=== PATIENT | female | born 1960 | race Caucasian/White ===

== ENCOUNTER 2023-12-24 17:40 | Emergency (ER) | payer OTHER, SELFPAY ==
[2023-12-24 17:41] VITALS: BP 172/91
[2023-12-24 18:18] VITALS: BMI 23.5
--- NOTE | 2023-12-24 18:20 | ED.GENMED ---
History of Present Illness
General
Chief Complaint: Abdominal Pain
Source: patient
Exam Limitations: none
Time Seen by Provider: 12/24/23 18:05
Nursing documentation reviewed up to this point in time: agreed with
History of Present Illness
History of Present Illness:
Patient to ED with complaint of LLQ abdominal pain. Pain started this AM. Denies fever/chills. +nausea and vomiting. No prior history of same. Evaluated at and sent to ED for further evaluation. History of diverticulosis as seen on
colonoscopy. On ozempic 3 mos for weight loss. No recent change in dosing.
Past History
Past History
ED Past Medical History: Asthma, HTN, Hypercholesterolemia, NIDDM, Psychiatric (Anxiety) and Other (Irritable bowel syndrome, chronic sinusitis)
ED Past Surgical History: Gynecological (Tubal ligation) and Other (Endoscopic sinus surgery)
Social History
Tobacco: Former smoker (20+ years ago)
Alcohol: None
Personal:
Living: alone
Employment: Employed
Family History
Family History: Other (Noncontributory)
Review of Systems
Review of Systems
Allergies reviewed?: Yes
All Other Systems: ROS reviewed and negative except as documented in HPI and ROS
Constitutional: Reports no symptoms
EENT: Reports no symptoms
Respiratory: Reports no symptoms
Cardiac: Reports no symptoms
ABD/GI: Reports abdominal pain (LLQ)
: Reports no symptoms
Musculoskeletal: Reports no symptoms
Skin: Reports no symptoms
Neurological: Reports no symptoms
Psychiatric: Reports no symptoms
Phy Exam
General Physical Exam
General Presentation: well appearing and no apparent distress
General age: appears stated age
General Skin: warm and dry
General Habitus: normal
General Mental: alert
Pulmonary Exam
Pulmonary Exam: no respiratory distress and chest non tender
Gastrointestinal Exam
Gastrointestinal Exam: normal bowel sounds, soft, no organomegaly, non distended and no cva tenderness
Palpation: left upper quadrant: Mild tenderness, left lower quadrant: Moderate tenderness, right upper quadrant: No tenderness and right lower quadrant: No tenderness
Musculoskeletal Exam
Musculoskeletal Exam: full ROM and neuro vasc intact
Skin Exam
Skin Exam: normal color, warm/dry and no rash
Psychiatric Exam
Psychiatric Exam: normal mood/affect
Course
Orders/Labs/Results
Orders:
Orders
12/24/23
CT Abd/pel W Iv And Oral Contr Urgent
Reason For Exam: LLQ PAIN
12/24/23 18:18
HYDROmorphone [Dilaudid] 0.5 mg IV NOW STA
Ondansetron Injectable [Zofran] 4 mg IV NOW STA
12/24/23 18:19
0.9% Sodium Chloride 1000 ml [Nss] 1,000 ml IV BOLUS
12/24/23 18:24
Iohexol [Omnipaque] See Protocol PO NOW STA
12/24/23 18:45
CMP [Comprehensive Metabolic Panel] Urgent
Complete Blood Count/With Diff Urgent
Lipase Urgent
12/24/23 19:05
Urinalysis Reflex To Culture Urgent
Date Specimen was Collected: 12/24/23
Time Specimen was Collected: 19:03
Urine Microscopic Reflex Cult Urgent
12/24/23 21:53
Amoxicillin 875 mg/Clav 125 mg [Augmentin 875 mg/125 mg] 1 tablet PO NOW STA
12/24/23 21:54
Hydrocodone 5/APAP 325 [[place] 5/325] 1 tablet PO NOW STA
Abnormal Lab Results
12/24/23 12/24/23
18:45 19:05
WBC 15.5 H 10^3/uL
(4.8-10.8)
Abs Immat Gran (auto) 0.1 H 10^3/uL
(0-0.05)
Absolute Neuts (auto) 12.6 H 10^3/uL
(1.4-6.5)
Absolute Monos (auto) 0.9 H 10^3/uL
(0.1-0.6)
Neutrophils % 81.2 H %
(42.2-75.2)
Lymphocytes % 10.5 L %
(20.5-51.1)
Ur Occult Blood Reflex Trace A
(Negative)
Urine RBC 3-6 A /HPF
(0-2)
12/24/23 18:45
12/24/23 18:45
Vital Signs
Initial and Last Documented VS:
Initial Vital Signs
Temp Pulse Resp BP Pulse Ox
98.4 F 98 18 172/91 99
12/24/23 17:41 12/24/23 17:41 12/24/23 17:41 12/24/23 17:41 12/24/23 17:41
Last Documented Vital Signs
Temp Pulse Resp BP Pulse Ox
98.4 F 91 18 130/80 95
12/24/23 17:41 12/24/23 19:00 12/24/23 17:41 12/24/23 21:06 12/24/23 20:40
*Radiology
Radiology exam reviewed: radiology read reviewed
*Pulse Oximetry
Patient hypoxic: no
*Critical Care Note
Total Time (30-74mins, 75-104mins- exclusive of procedures): Not Applicable
ED Attending Note
-
Portions of this chart may have been created with voice recognition software.� Occasional wrong word or��sound alike� substitutions may have occurred due to the inherent limitations of voice recognition software.
Discharge Plan
Departure
Patient Disposition: Home (Routine Discharge)
Date of Disposition: 12/24/23
Time of Disposition: 21:54
Patient with high blood pressure during this ER visit?: No
Condition: Good
Covid-19: Not Applicable
Discharge Problem:
Diverticulitis
Instructions: Diverticulitis (DC)
Prescriptions:
New
amoxicillin-pot clavulanate 875-125 mg tablet
1 tab PO BID Qty: 14 0RF
hydrocodone-acetaminophen 5-325 mg tablet
1 tab PO Q4H PRN (Reason: Pain) Qty: 12 0RF
No Action
lisinopril 10 MG tablet
10 mg PO DAILY
vitamin B complex 1 TAB tablet
1 tab PO DAILY
escitalopram oxalate 5 MG tablet
5 mg PO DAILY
fluticasone propionate 1 SPRAY spray,suspension
1 spray intranasal DAILY
Referrals:
Ryley Parra MD [Family Provider] - Follow up in 2-3 days
Interventions
Interventions:
*Risk Screen - Suicide Last Done: 12/24/23 18:18
*General Assessment Last Done: 12/24/23 18:18
*Neglect/Abuse Screening Last Done: 12/24/23 18:18
ED- Fall Risk Assessment Last Done: 12/24/23 19:30
*ED COVID-19 Vaccine History Last Done: 12/24/23 18:18
*Nursing Disposition Last Done: 12/24/23 22:07
MJ-Tlmpsr-P[facility]te[facility] Assessment Last Done: 12/24/23 19:30
Discharge Date and Time
Discharge Date/Time: 12/24/23 22:08
Print Language: THAI
[2023-12-24] MEDS: OMNIPAQUE 50 ML PO (18:47)
[2023-12-24] MEDS: ZOFRAN 4 MG IV (18:47)
[2023-12-24] MEDS: DILAUDID 0.5 MG IV (18:48)
[2023-12-24] MEDS: NSS 1000 IV (18:49)
[2023-12-24 19:00] VITALS: BP 126/86
[2023-12-24 19:14] LABS: % Basophils 0.5 % (0-2); % Eosinophils 1.8 % (0-6); % Immature Granulocytes 0.5 % (0-0.5); % Lymphocytes 10.5 % (20.5-51.1); % Monocytes 5.5 % (1.7-9.3); % Neutrophils 81.2 % (42.2-75.2); Absolute Basophils 0.1 10^3/uL (0-0.2); Absolute Eosinophils 0.3 10^3/uL (0-0.7); Absolute Immature Granulocytes 0.1 10^3/uL (0-0.05); Absolute Lymphocytes 1.6 10^3/uL (1.2-3.4); Absolute Monocytes 0.9 10^3/uL (0.1-0.6); Absolute Neutrophils 12.6 10^3/uL (1.4-6.5); Hematocrit 39.4 % (37.0-47.0); Hemoglobin 13.5 g/dL (12.0-16.0); Mean Corp Hgb Conc. 34.3 g/dL (33.0-37.0); Mean Corpuscular Hgb 30.5 pg (27.0-31.0); Mean Corpuscular Volume 89.1 fL (81.0-99.0); Mean Platelet Volume 10.1 fL (7.4-10.4); Nucleated Red Blood Cells % 0 %; Platelet Count 265 10^3/uL (130-400); Red Blood Cell Count 4.42 10^6/uL (4.20-5.40); Red Cell Dist. Width 13.4 % (11.5-14.5); White Blood Cell Count 15.5 10^3/uL (4.8-10.8)
[2023-12-24 19:14] LABS: Urine Albumin Negative (Neg - Trace); Urine Bilirubin Negative (Negative); Urine Character Clear (Clear); Urine Color Yellow; Urine Glucose Negative (Negative); Urine Ketone Negative (Negative); Urine Leukocyte Negative (Negative); Urine Nitrite Negative (Negative); Urine Occult Blood Trace (Negative); Urine Urobilinogen Negative (Neg - 1+)
[2023-12-24 19:33] LABS: ALT (SGPT) 24 U/L (0-35); AST (SGOT) 25 U/L (14-36); Albumin 4.7 g/dl (3.5-5.0); Alkaline Phosphatase 83 U/L (38-126); Blood Urea Nitrogen 14 mg/dl (7-17); Carbon Dioxide 26 mmol/L (22-30); Chloride 103 mmol/L (98-107); Estimated Creatinine Clearance 80 ml/min; Glucose 97 mg/dl (70-99); Potassium 4.1 mmol/L (3.5-5.1); Sodium 139 mmol/L (135-145); Total Bilirubin 0.5 mg/dl (0.2-1.3); Total Protein 6.9 g/dl (6.3-8.2); eGFR > 60.00
[2023-12-24 19:43] LABS: Lipase 47 U/L (23-300)
[2023-12-24 21:06] VITALS: BP 130/80
[2023-12-24] MEDS: NORCO 5/325 1 TABLET PO (22:01)
[2023-12-24] MEDS: AUGMENTIN 875 MG/125 MG 1 TABLET PO (22:01)
== END 2023-12-24 22:08 | disposition home or self-care (01) ==
LOC: EMR 17:40
PROVIDERS: Nurse Practitioner; EMERGENCY PHYSICIAN Emergency Medicine; FAMILY PHYSICIAN Orthopaedic Surgery
DX: K57.92 Diverticulitis of intestine, part unspecified, without perforation or abscess without bleeding (principal); I10 Essential (primary) hypertension; E11.9 Type 2 diabetes mellitus without complications; E78.00 Pure hypercholesterolemia, unspecified; J45.909 Unspecified asthma, uncomplicated; F41.9 Anxiety disorder, unspecified; K58.9 Irritable bowel syndrome, unspecified; J32.9 Chronic sinusitis, unspecified; Z87.891 Personal history of nicotine dependence; Z88.1 Allergy status to other antibiotic agents; Z91.018 Allergy to other foods; Z91.048 Other nonmedicinal substance allergy status
CPT/HCPCS: 99285; 96375; 96361; 96374; 74177; 80053; 81003; 81015; 83690; 85025; Q9967

== ENCOUNTER → 2024-12-17 15:13 | Outpatient (REF) | payer OTHER, SELFPAY | LOC: RAD 15:13 | PROVIDERS: ATTENDING PHYSICIAN Student in an Organized Health Care Education/Training Program | DX: K52.9 Noninfective gastroenteritis and colitis, unspecified (principal); K62.5 Hemorrhage of anus and rectum | CPT/HCPCS: 74177; Q9967 ==

== ENCOUNTER 2024-12-18 14:04 | Inpatient (IN) | payer OTHER, SELFPAY ==
[2024-12-18 09:55] VITALS: BP 117/77
--- NOTE | 2024-12-18 10:21 | ED.GENMED ---
History of Present Illness
General
Chief Complaint: Abnormal Lab Value
Time Seen by Provider: 12/18/24 10:04
History of Present Illness
History of Present Illness:
64-year-old female presents to the emergency department for evaluation of recurrent colitis as well as a diagnosed PE on CT scan from yesterday. In short the patient was admitted to [facility] in [place] 11/03-11/09 for vomiting and
diarrhea, she was diagnosed with acute colitis initially treated with IV ciprofloxacin and metronidazole before being transition to steroids. She apparently underwent a colonoscopy however does not have detailed knowledge of the findings of the
scope. She does note that she was reportedly told she had a sigmoid ulcer at that time. She states she did improve symptomatically however over the past several days has had increased diarrhea and is blood-tinged. Denies any significant abdominal
pain at this time but does have pain with bowel movements. Denies any fevers or chills. Had an outpatient CT of the abdomen pelvis yesterday that showed recurrent colitis but also incidentally noted right lower lobe pulmonary embolic disease.
Referred to the emergency department by her primary care physician. She does note that her hemoglobin murray while hospitalized in [place] was approximately mid eights however increased to mid nines on outpatient labs recently
Past History
Past History
ED Past Medical History: Asthma, HTN, Hypercholesterolemia, NIDDM, Psychiatric (Anxiety) and Other (Irritable bowel syndrome, chronic sinusitis)
ED Past Surgical History: Gynecological (Tubal ligation) and Other (Endoscopic sinus surgery)
Social History
Tobacco: Former smoker (20+ years ago)
Alcohol: None
Personal:
Living: alone
Employment: Employed
Family History
Family History: Other (Noncontributory)
Review of Systems
Review of Systems
Allergies reviewed?: Yes
All Other Systems: ROS reviewed and negative except as documented in HPI and ROS
Phy Exam
Physical Exam
Physical Exam:
GEN: Well appearing, NAD, WDWN
HEENT: Oral mucosa moist, no scleral icterus
Cardiac: Tachycardic, regular
Lung: No respiratory distress, no tachypnea, lungs clear to auscultation bilateral
Abdomen: Soft, nontender
MSK: No gross deformity or injuries
Skin: Good color, no pallor or jaundice, no rashes
Neuro: AO x3, moves all extremities freely
Psych: Calm, cooperative
Course
Orders/Labs/Results
Orders:
Orders
12/18/24 09:58
Electrocardiogram (*1) Urgent
Reason for Study: Other
Other Reason for Exam: PE
EKG- Treatment ONCE
12/18/24 10:20
CT Chest PE Study Urgent
Comment:
Reason For Exam: RLL PE on abd CT
12/18/24 10:21
C DIFF [C difficile Antigen & Toxins] Urgent
BHAVNA Source: Feces/Stool
Specimen Description:
Stool Culture Urgent
BHAVNA Source: Feces/Stool
Specimen Description:
12/18/24 10:36
Type+Screen Urgent
Complete Blood Count/With Diff Urgent
Comprehensive Metabolic Panel Urgent
Lactic Acid Q4H
Comment: CANCEL 2nd LACTIC ACID IF 1st LACTIC ACID IS LESS THAN 2
PTT Urgent
Prothrombin Time Urgent
12/18/24 13:[address] Non Medication Order As Directed
Physician Order: PTT 6 hours after initial start of Heparin infusion
Above order entered?: Yes
12/18/24 13:04
Lactated Ringers [Lr] 1,000 ml IV BOLUS
12/18/24 13:15
Heparin 10320 Units/250 ml 25,000 units in 250 ml IV PER PROTOCOL
Weight to be used for heparin protocol in kilograms (kg):: 55
Protocol:: DVT/PE
PTT Goal Range to be used:: PTT 73 to 111 seconds
Order type:: Initial
INITIAL Infusion Dose (UNITS/KG/hr) & then follow protocol:: 18 units/kg/hr
Infusion Dose in UNITS/hr & then follow protocol (UNITS/hr):: 1,000
INFUSION RATE in mL/hr & then follow protocol (mL/hr):: 10
For DVT/PE algorithm, re-bolus for low PTT?: No
PTT less than or equal to 64 seconds:: No Re-bolus. Increase by 200 units/hr (+ 2mL/hr)
PTT 64.1 to 72.9 seconds:: No Re-bolus. Increase by 100 units/hr (+ 1mL/hr)
PTT 73 to 111 seconds:: Target Range. No change in rate.
PTT 111.1 to 130.9 seconds:: Decrease rate by 100 units/hr (- 1 mL/hr)
PTT 131 to 199.9 seconds:: HOLD for 1 hr. Then decrease by 200 units/hr (- 2mL/hr)
PTT greater than or equal to 200 seconds:: HOLD for 2 hrs & Notify Provider. Then decrease by 200 units/hr
(- 2mL/hr)
Lab follow-up:: Each change, PTT q6h until 2 consecutive are therapeutic. Then
PTT daily.
12/18/24 13:49
Admit/Transfer Patient As Directed
Co-Sign Provider:
Level of Care: Inpatient admission
Assign to:: Telemetry
Physician / Group: [email or web address]
Diagnosis: colitis
Reason for Telemetry: Arrhythmia
Date to Stop Telemetry: 12/21/24
Time to Stop Telemetry: 11:00
Reason for Hospitalization: colitis
Expected length of stay greater than two midnights?: Yes
ELOS- Estimated Length of Stay in days: 2
I certify the patient meets the requirements for IP care: Yes
12/18/24 13:50
Code Status As Directed
Resuscitation Status: Full Code
PRN Pain Medication Management As Directed
May give lesser potent ordered pain med per pt: Yes
preference::
Protocol:: Medication orders for pain may be administered in a
manner that supports deferring to patient preference
when the pt is:
- Requesting an ordered lesser potent pain medication.
Least to most potent pain medications are defined
as: acetaminophen < NSAID < tramadol < opioids
(morphine, oxycodone, hydromorphone).
- Requesting a lesser dose of the same medication IF
ORDERED.
- Requesting a less intrusive route of administration
if both routes are prescribed by the provider (PO <
IV).
12/21/24 11:00
DC Protocol for Telemetry ONCE
Abnormal Lab Results
12/18/24
10:36
RBC 3.29 L 10^6/uL
(4.20-5.40)
Hgb 9.5 L g/dL
(12.0-16.0)
Hct 30.5 L %
(37.0-47.0)
MCHC 31.1 L g/dL
(33.0-37.0)
RDW 16.5 H %
(11.5-14.5)
Abs Immat Gran (auto) 0.1 H 10^3/uL
(0-0.05)
Absolute Monos (auto) 1.1 H 10^3/uL
(0.1-0.6)
Immature Gran % 0.9 H %
(0-0.5)
Monocytes % 10.9 H %
(1.7-9.3)
APTT 20.8 L Sec
(23.4-35.0)
Potassium 3.4 L mmol/L
(3.5-5.1)
AST 12 L U/L
(14-36)
Total Protein 4.4 L g/dl
(6.3-8.2)
Albumin 2.5 L g/dl
(3.5-5.0)
12/18/24 10:36
12/18/24 10:36
Vital Signs
Initial and Last Documented VS:
Initial Vital Signs
Temp Pulse Resp BP Pulse Ox
98.3 F 121 18 117/77 99
12/18/24 09:55 12/18/24 09:55 12/18/24 09:55 12/18/24 09:55 12/18/24 09:55
Last Documented Vital Signs
Temp Pulse Resp BP Pulse Ox
98.3 F 121 18 117/77 99
12/18/24 09:55 12/18/24 09:55 12/18/24 09:55 12/18/24 09:55 12/18/24 09:55
MDM/Problems Addressed
MDM/Problems Addressed:
64-year-old female presents with worsening colitis symptoms however also noted to have outpatient PE on CT scan. Given that she has had rectal bleeding secondary to colitis we will start her on heparin and avoid the bolus for the time being and
monitor for bleeding complications. Management of this was discussed with critical care cage operator as well as hospitalist.
*Critical Care Note
Total Time (30-74mins, 75-104mins- exclusive of procedures): Not Applicable
ED Attending Note
-
Portions of this chart may have been created with voice recognition software.� Occasional wrong word or��sound alike� substitutions may have occurred due to the inherent limitations of voice recognition software.
Discharge Plan
Departure
Patient Disposition: Admit
Date of Disposition: 12/18/24
Time of Disposition: 13:01
Admit to: Med/Surg
Presentation/result/management discussed w/ accepting MD/DO: Hospitalist
Discharge Problem:
Acute pulmonary embolism, Acute colitis
Interventions
Interventions:
*Risk Screen - Suicide Last Done: 12/18/24 09:55
*General Assessment Last Done: 12/18/24 09:55
*Neglect/Abuse Screening Last Done: 12/18/24 09:55
*ED- Fall Risk Assessment Last Done: 12/18/24 10:30
*ED COVID-19 Vaccine History Last Done: 12/18/24 10:30
[2024-12-18 10:28] VITALS: BMI 22.2
[2024-12-18 10:47] LABS: % Basophils 0.2 % (0-2); % Eosinophils 0.9 % (0-6); % Immature Granulocytes 0.9 % (0-0.5); % Lymphocytes 31.5 % (20.5-51.1); % Monocytes 10.9 % (1.7-9.3); % Neutrophils 55.6 % (42.2-75.2); Absolute Eosinophils 0.1 10^3/uL (0-0.7); Absolute Immature Granulocytes 0.1 10^3/uL (0-0.05); Absolute Lymphocytes 3.3 10^3/uL (1.2-3.4); Absolute Monocytes 1.1 10^3/uL (0.1-0.6); Absolute Neutrophils 5.8 10^3/uL (1.4-6.5); Hematocrit 30.5 % (37.0-47.0); Hemoglobin 9.5 g/dL (12.0-16.0); Mean Corp Hgb Conc. 31.1 g/dL (33.0-37.0); Mean Corpuscular Hgb 28.9 pg (27.0-31.0); Mean Corpuscular Volume 92.7 fL (81.0-99.0); Mean Platelet Volume 8.6 fL (7.4-10.4); Nucleated Red Blood Cells % 0 %; Platelet Count 274 10^3/uL (130-400); Red Blood Cell Count 3.29 10^6/uL (4.20-5.40); Red Cell Dist. Width 16.5 % (11.5-14.5); White Blood Cell Count 10.3 10^3/uL (4.8-10.8)
[2024-12-18 10:57] LABS: INR 0.93; PT 12.8 Sec (11.4-14.6)
[2024-12-18 11:13] LABS: ALT (SGPT) 17 U/L (0-35); AST (SGOT) 12 U/L (14-36); Albumin 2.5 g/dl (3.5-5.0); Alkaline Phosphatase 48 U/L (38-126); Blood Urea Nitrogen 17 mg/dl (7-17); Calcium 8.5 mg/dl (8.4-10.2); Carbon Dioxide 29 mmol/L (22-30); Chloride 104 mmol/L (98-107); Estimated Creatinine Clearance 76 ml/min; Glucose 98 mg/dl (70-99); Potassium 3.4 mmol/L (3.5-5.1); Sodium 135 mmol/L (135-145); Total Bilirubin 0.3 mg/dl (0.2-1.3); Total Protein 4.4 g/dl (6.3-8.2); eGFR > 60.00
[2024-12-18 11:24] LABS: APTT 20.8 Sec (23.4-35.0)
[2024-12-18 11:36] LABS: Lactic Acid 1.4 mmol/L (0.7-2.0)
--- NOTE | 2024-12-18 13:52 | HPS.HSE ---
Family Physician
-
Family Physician: NOT KNOW UNKNOWN - PT DOES
Chief Complaint
-
diarrhea
History of Present Illness
64-year-old female past medical history of hypertension, chronic sinusitis status post surgery for nasal polyps, abscess behind the left eye status post surgery, possible diverticulitis, discogenic degenerative disc disease on imaging, presenting
for persistent diarrhea.
Patient was admitted to [facility] in [place] from 11/03 to 11/09 for initially vomiting which resolved and bloody diarrhea and she was diagnosed with acute colitis initially treated with IV ciprofloxacin and metronidazole. She underwent
a colonoscopy during hospitalization which showed severe colonic inflammation and sigmoid ulcer. She has continued to have persistent diarrhea up to 10 times a day but the bleeding is significantly improved with only changes of blood. No fevers or
chills. Does have vague abdominal discomfort. She has been eating. She was started on prednisone a week ago by her GI doctor was nothing else worked.
Had outpatient CT scan of the abdomen pelvis yesterday that showed recurrent colitis but also incidentally showed right lower lobe pulmonary embolic disease. She was referred to the emergency room by her primary care physician.
She was found to be anemic while in [place] around 8.5 however it increased to 9.5 on outpatient labs recently. She did have an episode of abdominal pain thought to be secondary to diverticulitis 2 months ago
She denies any shortness of breath or chest pain or dizziness apart from initial syncopal episode from hypotension during hospitalization in [place].
He recently had a long drive back from [place] when she was sitting for 5 hours. She did have some swelling in her left leg which is resolved.
She has history of GI issues in her mother and brother with no specific diagnosis.
Medical History
Past Medical History
Past Medical History: Reports Other (hypertension, chronic sinusitis status post surgery for nasal polyps, abscess behind the left eye status post surgery, possible diverticulitis, discogenic degenerative disc disease on imaging)
Past Surgical History: Reports Other (Gynecological (Tubal ligation) and Other (Endoscopic sinus surgery))
Social History
Tobacco: Non-smoker
Alcohol: None
Drug: None
Family History
Family History: Not pertinent
Allergies / Home Medications
Allergies reflects when Allergies were last updated in [facility].
Home Medications with original date entered in [facility]
Allergy/Medication List:
Allergies
Allergy/AdvReac Type Severity Reaction Status Date / Time
azithromycin (From Zithromax Allergy Unknown Verified 12/18/24 09:55
Z-Chu)
bananas Allergy itchy mouth Uncoded 03/04/20 14:22
pollen Allergy sneezing Uncoded 03/04/20 14:22
and watery
eyes
Home Medications
escitalopram oxalate 5 mg tablet 5 mg PO DAILYPRN PRN anxiety 06/10/16
lisinopril 10 mg tablet 10 mg PO DAILYPRN PRN high blood pressure 06/10/16
Lactobac no.2-Bifidobac no.1-S. thermo 112.5 billion cell capsule (Visbiome) 1 cap PO BID 12/18/24
dicyclomine 10 mg capsule 20 mg PO TID 12/18/24
ferrous sulfate 325 mg (65 mg iron) tablet 325 mg PO MOWEFR 12/18/24
loperamide 2 mg tablet 2 mg PO BIDPRN PRN diarrhea 12/18/24
prednisone 5 mg tablet 5 mg PO DIRECTED 12/18/24
Review of Systems
-
History Source: Patient
A 12 point ROS was completed and negative except as noted: Yes
Constitutional: Reports No Symptoms
EENT: Reports No Symptoms
Respiratory: Reports No Symptoms
Cardiac: Reports No Symptoms
Abdomen/GI: Reports See HPI
: Reports No Symptoms
Musculoskeletal: Reports No Symptoms
Skin: Reports No Symptoms
Neurological: Reports No Symptoms
Endocrine: Reports No Symptoms
Hematologic/Lymphatic: Reports No Symptoms
Psych: Reports No Symptoms
Physical Exam
Vital Signs
Vital Signs
Temp Pulse Resp BP Pulse Ox
98.3 F 121 18 117/77 99
12/18/24 09:55 12/18/24 09:55 12/18/24 09:55 12/18/24 09:55 12/18/24 09:55
Physical Exam
General: Well Developed, Well Nourished and No Apparent Distress
HEENT: NormoCephalic, Moist mucous membranes and Atraumatic
Respiratory: Clear
Cardiac: S1/S2 and Regular Rhythm; No Murmur or Rub
GI: Soft, Non Tender, Non Distended and Normal Bowel Sounds; No Organomegaly
Rectal: Deferred by Provider
Musculoskeletal: No Clubbing, No Cyanosis and No Edema
Skin: No Rash
Neuro: Nonfocal/grossly intact
Laboratory Results
-
12/18/24 10:36
12/18/24 10:36
Laboratory Results
PT 12.8 Sec (11.4-14.6) 12/18/24 10:36
INR 0.93 12/18/24 10:36
APTT 20.8 Sec (23.4-35.0) L 12/18/24 10:36
Lactic Acid Cancelled 12/18/24 14:30
Total Bilirubin 0.3 mg/dl (0.2-1.3) 12/18/24 10:36
AST 12 U/L (14-36) L 12/18/24 10:36
ALT 17 U/L (0-35) 12/18/24 10:36
Alkaline Phosphatase 48 U/L (38-126) 12/18/24 10:36
Data Reviewed
-
Lab Data: Labs Reviewed by me
Old Records: Reviewed
Impression/Plan
-
IMPRESSION:
PLAN:
# Persistent Colitis of transverse/descending colon unclear if infectious versus ischemic versus underlying IBD versus malignancy
# Sigmoid ulcer
# Acute gastritis
- CT abdomen pelvis shows moderate acute recurrent colitis in the transverse and descending colon possibly acute ischemic colitis versus acute inflammatory bowel disease versus acute infectious colitis
- Large amount of fecal material in the proximal colon
- 3.8 cm focal regional wall thickening in the gastric cardia and fundus possibly gastritis
-IV fluids
-Stool studies pending
-Unclear if she has underlying IBD versus malignancy
-Protonix 40 twice daily
-Continue dicyclomine
-Hold prednisone
-Clear liquid diet
-Will need to obtain records from [facility]
-GI consulted
# Hypokalemia secondary to GI losses
- Replete potassium
# Incidental pulmonary embolism likely exacerbated by recent long drive/concerning for underlying inflammatory GI process
-EKG shows sinus tachycardia heart rate of 111
-CT PE today shows small volume bilateral lower lobe pulmonary embolism without right heart strain
-Heparin drip
Normocytic anemia
- Hemoglobin 9.5
- Continue ferrous sulfate
Hepatic steatosis on imaging
Essential hypertension
- Continue lisinopril
Chronic sinusitis/nasal polyp status post surgery
Discogenic degenerative disc disease on imaging
Anxiety/depression
-Continue Lexapro
Full code
DVT prophylaxis�heparin drip
N.p.o.
[2024-12-18] MEDS: LR 1000 IV (14:19)
[2024-12-18] MEDS: HEPARIN 25000 UNITS/250 ML IV (14:19)
--- NOTE | 2024-12-18 15:01 | CON.GI ---
Addendum entered and electronically signed by Kevan Awad MD 12/18/24 19:59:
pls note other findings on CT:
- fatty liver, gb polyps (will need outpatient follow up)
- jejunal wall thickening (she may have Crohn's which could explain sb thickening)
on d/w pulm they recommend waiting 6 weeks to 3 mo for propofol
once echo also done can re-eval timeline
may need ugis/sbft for eval of stomach lesion in interim
Addendum entered and electronically signed by Kevan Awad MD 12/18/24 16:46:
The patient was seen and examined by me independently in collaboration with the nurse practitioner.
Past medical history/social history/medications/allergies/family history reviewed.
Lab data and imaging data reviewed.
64 yo F pmh as below with recent hospitalization in [place]. Symptoms initially started early November after having a nipple holding with nausea and vomiting. She underwent a CT in the ER at that point and was discharged. Then she developed bloody
diarrhea up to 27 bowel movements a day and was hypotensive with blood pressure of 70/48 which led to her going back to the emergency room and ultimately being admitted from December 06 to December 10. Per patient, she underwent 2 CT scans, no stool samples
were done, colonoscopy. Tara have reached out to their office and per their oral read of report to Tara ' sigmoid diverticulosis encountered. Active bleeding in the transverse colon. Colonoscopy aborted in transverse secondary to colitis. Random
biopsy taken in transverse colon and ulceration in sigmoid colon that was 2 cm. Sparing in rectum and distal sigmoid colon. Path: Transverse colon: acute granulation tissue with fibropurulent exudate consistent with ulcer. Sigmoid ulcer: acute
granulation tissue with fibropurulent exudate consistent with ulcer. Negative for microscopic colitis, negative for dysplasia or malignancy.' She was discharged and then followed up with GI outpatient and was ultimately started on steroids. They
started her on 60 mg a day and she tapered every 3 days and she is currently on 15 mg. Her stools did decrease in terms of the frequency now down to 8 bowel movements a day. She has not seen blood in her stool since December 02. She noted her stools
were more watery since she decreased to 15 mg but unclear if it was due to that or her diet. She has some pain before a bowel movement, some urgency, incontinence, nocturnal bowel movements. She has lost 15 pounds. Unclear family history her mom
has colitis but not on any chronic medications and her brother has GI issues unclear what those are. No known autoimmune conditions.
Patient was sent in by her outpatient primary care doctor as she underwent a CT scan which showed a pulmonary embolus. She was referred back to the emergency room.
Pulmonology has seen her and she is currently on a heparin drip. Likely VTE was multifactorial on d/w pulm due to hospitalization, colitis, car ride.
Reviewing her pathology, she does not clearly have IBD although my concern with the recent thromboembolus this could represent early IBD (would be more Crohn's colitis with rectal and distal sigmoid sparing) as well as her ongoing symptoms for 6
weeks and perhaps that is why they did not see chronicity on the biopsies. She does seem to have some response to steroids. I would like to do a flexible sigmoidoscopy but will discuss with both pulmonology and anesthesia tomorrow; clear liquid
diet for now with potential scope. I suspect the best option would be to do this unsedated with repeat biopsies to see if there is chronicity at this point. In the interim, I do recommend stool studies which have been ordered for infection as well
as a fecal calprotectin. In the interim, I will continue her prednisone at 20 mg.
She was incidentally found to have thickening of her stomach and will eventually need EGD timing TBD.
Original Note:
Consultation
-
Date/Time Consultation Requested: 12/18/24 1400
Date/Time Consultation Performed: 12/18/24 1430
Requesting Provider: Dr. Giron
Performing Provider: Dr. Awad/ALLIE Baum
Reason for Consultation: colitis
Medical History
Chief Complaint / HPI
Chief Complaint: diarrhea, abnormal imaging
History of Present Illness:
64-year-old female past medical history of chronic sinusitis status post nasal surgery, abscess behind left eye status post surgery, degenerative disc disease, colon polyps with recent admission to [facility] in [place] for at first
nausea and vomiting after eating meatball hoagie from [facility] with subsequent hospitalization on 11/03/2024 for bloody diarrhea and 'colitis'. Prior to arrival she syncopized and her BP was 70/40 on arrival in ER. She was started on IV abx and had
colonoscopy performed by Dr. Moya on 11/07/24. I was able to contact his office for preliminary report ([phone]) (official colonoscopy report and path to be faxed). At that time the patient was having up to 27 bloody diarrheal bowel movements.
Was discharged on Cipro and Flagyl for 10 days. She was able to eat and drink only having abdominal cramping prior to bowel movement. She was also having fecal incontinence. She lost 15 pounds from 11/03/2024. She has no stool studies performed at
that time. She did follow-up with nurse practitioner in his office because of persistence of symptoms. The blood had stopped by 12/02/2024. Prednisone was initiated on 12/03/2024 by his office with taper.. This was 60 mg x 3 days, 40 mg x 3 days,
20 mg x 3 days, 15 mg x 7 days, 10 mg x 7 days and 5 mg x 7 days. currently the patient is still on 15 mg. the patient tells me that the colonoscopy was incomplete secondary to 'inflammation'. Telephone interpretation of report by his nursing
staff states ' sigmoid diverticulosis encountered. Active bleeding in the transverse colon. Colonoscopy aborted in transverse secondary to colitis. Random biopsy taken in transverse colon and ulceration in sigmoid colon that was 2 cm. Sparing in
rectum and distal sigmoid colon. Path: Transverse colon: acute granulation tissue with fibropurulent exudate consistent with ulcer. Sigmoid ulcer: acute granulation tissue with fibropurulent exudate consistent with ulcer. Negative for microscopic
colitis, negative for dysplasia or malignancy.' The patient states that since she was started on prednisone her bowel movements went from 27 a day down to approximately 11 a day. They went from watery to a 'mashed potato consistency'. she states
today they are back to a watery consistency. Because of her persistent symptoms she had outpatient CT scan of the abdomen and pelvis that showed recurrent colitis however also showed right lower lobe PE. She was sent to the emergency room for
further evaluation. We are asked to evaluate for the same. The patient does state that while she was in [place] she did have bilateral lower extremity edema before her drive. She is did state that it worsened during her drive home. She states
that she has had fatigue for the past couple weeks. She denies any fevers, chills, current nausea or vomiting. She denies any melena. She denies any current rectal bleeding. She denies any dysphagia or odynophagia. No early satiety. As stated
above she has lost 15 pounds since this started. She has no known family history of inflammatory bowel disease. She states her mother had an isolated episode of colitis. She had a paternal aunt with colon cancer. No other family history of
gastrointestinal malignancy.
Past Medical History
Past Medical History: HTN and Other ( Chronic sinusitis, left eye abscess, degenerative disc disease, colon polyps, colitis)
Past Surgical History: Gynecological (tubal ligation) and Other (sinus surgery )
Social History
Tobacco: Non-Smoker
Alcohol: None
Drug: None
Personal:
Living: With Family
Family History
Family History: Other (Paternal aunt colon ca, No fam hx IBD)
Allergies / Home Medications
Allergy/AdvReac Type Severity Reaction Status Date / Time
azithromycin (From Zithromax Allergy Unknown Verified 12/18/24 09:55
Z-Chu)
bananas Allergy itchy mouth Uncoded 03/04/20 14:22
pollen Allergy sneezing Uncoded 03/04/20 14:22
and watery
eyes
�Medication �Instructions �Recorded
escitalopram oxalate 5 mg tablet 5 mg PO DAILYPRN PRN anxiety 06/10/16
lisinopril 10 mg tablet 10 mg PO DAILYPRN PRN high blood 06/10/16
pressure
Lactobac no.2-Bifidobac no.1-S. 1 cap PO BID 12/18/24
thermo 112.5 billion cell capsule
(Visbiome)
dicyclomine 10 mg capsule 20 mg PO TID 12/18/24
ferrous sulfate 325 mg (65 mg 325 mg PO MOWEFR 12/18/24
iron) tablet
loperamide 2 mg tablet 2 mg PO BIDPRN PRN diarrhea 12/18/24
prednisone 5 mg tablet 5 mg PO DIRECTED 12/18/24
Review of Systems
-
All other systems: A 12 pt ROS was Negative except as stated above in HPI
Vital Signs
Temp Pulse Resp BP Pulse Ox
98.3 F 121 18 117/77 99
12/18/24 09:55 12/18/24 09:55 12/18/24 09:55 12/18/24 09:55 12/18/24 09:55
Physical Exam
Exam
General: No Apparent Distress
HEENT: Anicteric
Respiratory: Clear
Cardiac: Regular Rhythm
GI: Soft, Non Tender, Non Distended and Normal Bowel Sounds
Skin: Warm and Dry
Neuro: AO x 3
Psych: Calm
Results
WBC 10.3 10^3/uL (4.8-10.8) 12/18/24 10:36
Hgb 9.5 g/dL (12.0-16.0) L 12/18/24 10:36
Hct 30.5 % (37.0-47.0) L 12/18/24 10:36
MCV 92.7 fL (81.0-99.0) 12/18/24 10:36
Plt Count 274 10^3/uL (130-400) 12/18/24 10:36
Absolute Neuts (auto) 5.8 10^3/uL (1.4-6.5) 12/18/24 10:36
PT 12.8 Sec (11.4-14.6) 12/18/24 10:36
INR 0.93 12/18/24 10:36
APTT 20.8 Sec (23.4-35.0) L 12/18/24 10:36
Sodium 135 mmol/L (135-145) 12/18/24 10:36
Potassium 3.4 mmol/L (3.5-5.1) L 12/18/24 10:36
Chloride 104 mmol/L (98-107) 12/18/24 10:36
Carbon Dioxide 29 mmol/L (22-30) 12/18/24 10:36
BUN 17 mg/dl (7-17) 12/18/24 10:36
Creatinine 0.6 mg/dL (0.6-1.0) 12/18/24 10:36
Calcium 8.5 mg/dl (8.4-10.2) 12/18/24 10:36
Total Bilirubin 0.3 mg/dl (0.2-1.3) 12/18/24 10:36
AST 12 U/L (14-36) L 12/18/24 10:36
ALT 17 U/L (0-35) 12/18/24 10:36
Alkaline Phosphatase 48 U/L (38-126) 12/18/24 10:36
Diagnostic Image Results:
CT Abd/Pelvis with oral and IV contrast 12/17/24:
1. ACUTE PULMONARY ARTERIAL EMBOLIC DISEASE in the right lower lobe.
2. Moderate acute recurrent colitis in the transverse and descending colon. Diagnostic possibilities are (1) ACUTE ISCHEMIC COLITIS, (2) acute inflammatory bowel disease, or (3) an acute infectious colitis.
3. Large amount of fecal material in the proximal colon.
4. Mild to moderate diverticulosis in the sigmoid colon.
5. Mild hepatomegaly and mild diffuse hepatic steatosis.
6. 3.8 cm focal region of wall thickening in the gastric cardia and fundus. Diagnostic possibilities are (1) gastritis or (2) less likely gastric adenocarcinoma.
7. 3 mm nonobstructing right intrarenal calculus.
8. Severe discogenic degenerative disease at L4/L5 and L5/S1.
Prior GI Procedures:
EGD: Never
Colonoscopy: Dr. Moya ([facility]) 11/07/24 Telephone interpretation of report by his nursing staff states ' sigmoid diverticulosis encountered. Active bleeding in the transverse colon. Colonoscopy aborted in transverse secondary to
colitis. Random biopsy taken in transverse colon and ulceration in sigmoid colon that was 2 cm. Sparing in rectum and distal sigmoid colon. Path: Transverse colon: acute granulation tissue with fibropurulent exudate consistent with ulcer. Sigmoid
ulcer: acute granulation tissue with fibropurulent exudate consistent with ulcer. Negative for microscopic colitis, negative for dysplasia or malignancy. (Official report being faxed).
COLO 09/19/2018 (Dr. Harding) - Preparation of the colon was fair.
- The examined portion of the ileum was normal.
- Stool in the descending colon, in the transverse
colon, in the ascending colon and in the cecum.
- One 4 mm polyp at 30 cm proximal to the anus, removed
with a jumbo cold forceps. Resected and retrieved.
- One 4 mm polyp in the cecum, removed with a jumbo cold
forceps. Resected and retrieved.
- One 4 mm polyp in the proximal ascending colon,
removed with a jumbo cold forceps. Resected and
retrieved.
- Diverticulosis in the descending colon, in the
transverse colon and in the ascending colon.
- Moderate diverticulosis in the sigmoid colon. There
was evidence of diverticular spasm.
Assessment / Plan
-
64 year old female past medical history of chronic sinusitis status post nasal surgery, abscess behind left eye status post surgery, degenerative disc disease, chronic constipation, colon polyps with recent admission to [facility] in
[place] for at first nausea and vomiting after eating meatball hoagie from [facility] with subsequent hospitalization on 11/03/2024 for bloody diarrhea and 'colitis'. Prior to arrival she syncopized and her BP was 70/40 on arrival in ER. She was started on
IV abx and had colonoscopy performed by Dr. Moya on 11/07/24. I was able to contact his office for preliminary report ([phone]) (official colonoscopy report and path to be faxed). At that time the patient was having up to 27 bloody diarrheal
bowel movements. Was discharged on Cipro and Flagyl for 10 days. She was able to eat and drink only having abdominal cramping prior to bowel movement. She was also having fecal incontinence. She lost 15 pounds from 11/03/2024. She has no stool
studies performed at that time. She did follow-up with nurse practitioner in his office because of persistence of symptoms. The blood had stopped by 12/02/2024. Prednisone was initiated on 12/03/2024 by his office with taper.. This was 60 mg x 3
days, 40 mg x 3 days, 20 mg x 3 days, 15 mg x 7 days, 10 mg x 7 days and 5 mg x 7 days. currently the patient is still on 15 mg. the patient tells me that the colonoscopy was incomplete secondary to 'inflammation'. Telephone interpretation of
report by his nursing staff states ' sigmoid diverticulosis encountered. Active bleeding in the transverse colon. Colonoscopy aborted in transverse secondary to colitis. Random biopsy taken in transverse colon and ulceration in sigmoid colon that
was 2 cm. Sparing in rectum and distal sigmoid colon. Path: Transverse colon: acute granulation tissue with fibropurulent exudate consistent with ulcer. Sigmoid ulcer: acute granulation tissue with fibropurulent exudate consistent with ulcer.
Negative for microscopic colitis, negative for dysplasia or malignancy.' The patient states that since she was started on prednisone her bowel movements went from 27 a day down to approximately 11 a day. They went from watery to a 'mashed potato
consistency'. she states today they are back to a watery consistency. Because of her persistent symptoms she had outpatient CT scan of the abdomen and pelvis that showed recurrent colitis however also showed right lower lobe PE. She was sent to
the emergency room for further evaluation. We are asked to evaluate for the same.
Impression:
Colitis-> incomplete colonoscopy to transverse colon
--> persistent diarrhea
Sigmoid ulcer on recent procedure in [place]
3.8 cm focal region of wall thickening in the gastric cardia and fundus on CT imaging
--> new finding, no upper complaints.
Anemia
--> new issue. Improved Hgb since [place] admission. Prior Hgb was 8.5 in [place]. Now 9.5.
Pulmonary Embolism
--On Heparin gtt
Hx chronic constipation
--> prior to acute issues
Plan:
-Check stool studies (C Diff, WBC, O&P, Vibrio, Culture)
-Check ESR, CRP, calpro
-Await records from Dr. Moya and [facility]
-Steroids on hold
-Continue Pantoprazole
-Trend Hgb
-Will need to discuss possible EGD for abnormal CT.
-Await above results, if not revealing will need to broaden workup.
-
-
Thank you for consultation and allowing me to participate in the patient's care. Please call the pollution control chemist GI physician during the after hours with any questions or concerns.
[2024-12-18 15:27] VITALS: BP 123/72
[2024-12-18 15:28] VITALS: BMI 21.6
--- NOTE | 2024-12-18 16:04 | CM ---
CM met with pt bedside in ED. Lives with CALEB Harvey in multistory home, [address], Full flight to second floor, Half bath on first floor, BR and full BA on second floor.
Independent in ADLs, ambulation and personal care at baseline, still drives.
No DME in home, no financial insecurities, no hx VN or SNF.
PCP: Dr Day
Pharmacy: [facility]
Discharge plan: Anticipate DC home, watch for needs
[2024-12-18] MEDS: DELTASONE 20 MG PO (17:24)
[2024-12-18] MEDS: BENTYL PO (17:24)
[2024-12-18] MEDS: BENTYL 20 MG PO ×2 (17:30→21:11)
[2024-12-18] MEDS: NSS 1000 IV (17:37)
[2024-12-18 18:19] LABS: Erythrocyte Sed Rate 26 mm/hour (0-20)
[2024-12-18 19:23] VITALS: BP 108/73
[2024-12-18] MEDS: VISBIOME 1 CAP PO (20:13)
[2024-12-18] MEDS: NSS (PRESERVATIVE FREE) 10 ML IV (20:13)
[2024-12-18] MEDS: PROTONIX IV 40 MG IV (20:13)
[2024-12-18 20:40] LABS: APTT 44.3 Sec (23.4-35.0)
[2024-12-18 23:21] VITALS: BP 100/61
[2024-12-19] MEDS: NSS 1000 IV (00:27)
[2024-12-19 03:00] VITALS: BP 113/60
--- NOTE | 2024-12-19 04:19 | DOWNTIME ---
Addendum entered by Nadya Landon RN 12/19/24 14:17:
Downtime was 12/19/2024 from 0100 to 12/19/2024 at 0415
Original Note:
There was a [employer] Client Radiation Protection Technician Downtime on 12/18/2024 from 0100 to 12/19/2024 at 0415. Downtime documentation of patient's care, including medication administrations, has been reconciled in the electronic record per guidelines. Refer to the
patient's paper chart under the miscellaneous tab to see printed paper medication records and downtime forms.
[2024-12-19 05:00] LABS: APTT 89.7 Sec (23.4-35.0)
[2024-12-19 07:39] LABS: % Basophils 0.2 % (0-2); % Eosinophils 0.4 % (0-6); % Immature Granulocytes 0.7 % (0-0.5); % Lymphocytes 36.7 % (20.5-51.1); % Monocytes 11.2 % (1.7-9.3); % Neutrophils 50.8 % (42.2-75.2); Absolute Lymphocytes 2.1 10^3/uL (1.2-3.4); Absolute Monocytes 0.6 10^3/uL (0.1-0.6); Absolute Neutrophils 2.9 10^3/uL (1.4-6.5); Hematocrit 28.3 % (37.0-47.0); Hemoglobin 8.9 g/dL (12.0-16.0); Mean Corp Hgb Conc. 31.4 g/dL (33.0-37.0); Mean Corpuscular Hgb 29.2 pg (27.0-31.0); Mean Corpuscular Volume 92.8 fL (81.0-99.0); Mean Platelet Volume 8.6 fL (7.4-10.4); Nucleated Red Blood Cells % 0 %; Platelet Count 242 10^3/uL (130-400); Red Blood Cell Count 3.05 10^6/uL (4.20-5.40); Red Cell Dist. Width 16.3 % (11.5-14.5); White Blood Cell Count 5.6 10^3/uL (4.8-10.8)
[2024-12-19 07:53] VITALS: BP 99/68
[2024-12-19] MEDS: NSS (PRESERVATIVE FREE) 10 ML IV ×2 (07:57→21:06)
[2024-12-19] MEDS: PROTONIX IV 40 MG IV ×2 (07:57→21:06)
[2024-12-19] MEDS: BENTYL 20 MG PO ×3 (07:57→21:06)
[2024-12-19] MEDS: VISBIOME 1 CAP PO ×2 (07:57→21:06)
[2024-12-19] MEDS: DELTASONE 20 MG PO (07:58)
[2024-12-19] MEDS: FEOSOL 325 MG PO (08:01)
[2024-12-19 08:18] LABS: ALT (SGPT) 14 U/L (0-35); AST (SGOT) 12 U/L (14-36); Albumin 2.4 g/dl (3.5-5.0); Alkaline Phosphatase 48 U/L (38-126); Blood Urea Nitrogen 10 mg/dl (7-17); Calcium 8.2 mg/dl (8.4-10.2); Carbon Dioxide 29 mmol/L (22-30); Chloride 106 mmol/L (98-107); Estimated Creatinine Clearance 76 ml/min; Glucose 91 mg/dl (70-99); Potassium 4.4 mmol/L (3.5-5.1); Sodium 136 mmol/L (135-145); Total Bilirubin 0.4 mg/dl (0.2-1.3); Total Protein 4.3 g/dl (6.3-8.2); eGFR > 60.00
--- NOTE | 2024-12-19 08:39 | W.PN.UPDATE ---
Update Note
Progress Note Update
plan unsedated flex sig today d/w pt r/a/b inc risks bleeding infection perforation pt agreeable
on d/w Dr. Saravia ok to hold heparin gtt one hour ordered placed
will give enema
npo for now discussed with pt
c diff ag positive toxin negative low suspicion but will start vanco
further recs pending flex sig
--- NOTE | 2024-12-19 09:04 | CON.PUL ---
Consultation
Consultation Request
Date/Time Consultation Requested: 12/18/2024
Date/Time Consultation Performed: 12/19/2024
Requesting Provider: Tita Giron
Performing Provider: Hany Saravia
Reason for Consultation: PE
Medical History
-
Chief Complaint: Diarrhea
History of Present Illness:
64-year-old female past medical history of hypertension, chronic sinusitis status post surgery for nasal polyps, abscess behind the left eye status post surgery, possible diverticulitis, discogenic degenerative disc disease on imaging, presenting
for persistent diarrhea.
Patient was admitted to [facility] in [place] from 11/03 to 11/09 for initially vomiting which resolved and bloody diarrhea and she was diagnosed with acute colitis initially treated with IV ciprofloxacin and metronidazole. She underwent
a colonoscopy during hospitalization which showed severe colonic inflammation and sigmoid ulcer. She has continued to have persistent diarrhea up to 10 times a day but the bleeding is significantly improved with only changes of blood. No fevers or
chills. Does have vague abdominal discomfort. She has been eating. She was started on prednisone a week ago by her GI doctor was nothing else worked.
Had outpatient CT scan of the abdomen pelvis yesterday that showed recurrent colitis but also incidentally showed right lower lobe pulmonary embolic disease. She was referred to the emergency room by her primary care physician.
She was found to be anemic while in [place] around 8.5 however it increased to 9.5 on outpatient labs recently. She did have an episode of abdominal pain thought to be secondary to diverticulitis 2 months ago
She denies any shortness of breath or chest pain or dizziness apart from initial syncopal episode from hypotension during hospitalization in [place].
He recently had a long drive back from [place] when she was sitting for 5 hours. She did have some swelling in her left leg which is resolved.
She has history of GI issues in her mother and brother with no specific diagnosis.
Past Medical History
Past Medical History: Reports Other (hypertension, chronic sinusitis status post surgery for nasal polyps, abscess behind the left eye status post surgery, possible diverticulitis, discogenic degenerative disc disease on imaging)
Past Surgical History: Reports Other (Gynecological (Tubal ligation) and Other (Endoscopic sinus surgery))
Social History
Tobacco: Non-smoker
Alcohol: None
Drug: None
Family History
Family History: Not pertinent
Allergies / Home Medications
Allergies / Home Medications
Allergies
Allergy/AdvReac Type Severity Reaction Status Date / Time
azithromycin (From Zithromax Allergy Unknown Verified 12/18/24 09:55
Z-Chu)
banana Allergy ITCHY MOUTH Verified 12/18/24 15:35
pollen extracts Allergy sneezing Verified 12/18/24 15:35
and watery
eyes
Home Medications
�Medication �Instructions �Recorded �Confirmed �Last Taken �Type
escitalopram oxalate 5 mg tablet 5 mg PO DAILYPRN PRN anxiety 06/10/16 12/18/24 03/04/20 History
lisinopril 10 mg tablet 10 mg PO DAILYPRN PRN high blood 06/10/16 12/18/24 03/04/20 History
pressure
Lactobac no.2-Bifidobac no.1-S. 1 cap PO BID 12/18/24 12/18/24 12/17/24 History
thermo 112.5 billion cell capsule
(Visbiome)
dicyclomine 10 mg capsule 20 mg PO TID 12/18/24 12/18/24 12/17/24 History
ferrous sulfate 325 mg (65 mg 325 mg PO MOWEFR 12/18/24 12/18/24 12/17/24 History
iron) tablet
loperamide 2 mg tablet 2 mg PO BIDPRN PRN diarrhea 12/18/24 12/18/24 12/17/24 History
prednisone 5 mg tablet 5 mg PO DIRECTED 12/18/24 12/18/24 12/17/24 History
Review of Systems
-
Hematologic/Lymphatic: Other (All 14 systems reviewed and negative except as stated above in the history of present illness.)
Vitals / Labs / Diagnostic Testing
Vital Signs
Temp Pulse Resp BP Pulse Ox
98.4 F 106 18 123/72 99
12/18/24 15:27 12/18/24 15:27 12/18/24 15:27 12/18/24 15:27 12/18/24 15:27
Lab Data
12/18/24 10:36
12/18/24 10:36
Laboratory Results
12/18/24
10:36
PT 12.8
INR 0.93
APTT 20.8 L
Diagnostic Testing:
Physical Exam
-
HEENT: Normocephalic
Cardiovascular: S1/S2
Respiratory: Clear
GI: Soft and Non Distended
Neurology: Awake
Skin: Warm
General: Comfortable
Assessment
-
#1. Acute Pulmonary embolism, bilateral
- Suspect provoked pulmonary embolism with recent hospitalization, active inflammation with colitis, recent long travel from [place]
- Overall low clot burden, no evidence of right heart strain on imaging. Patient hemodynamically stable and saturating well without any respiratory distress
- Check lower extremity venous duplex to evaluate for any concomitant DVT. ECHO for further evaluation.
- IV heparin for anticoagulation, currently infusion started without initial bolus in view of episodic hematochezia in the setting of colitis
- If patient unable to tolerate anticoagulation and develops worsening hematochezia, will need to consider IVC filter
- Unless patient is diagnosed with a malignancy, this event appears to be provoked and will need 3 to 6 months of anticoagulation as long as underlying factors contributing to pulmonary embolism have resolved
Other medical diagnoses:
- Persistent colitis with episodic hematochezia, work up in progress. Anticipate sigmoidoscopy today with brief interruption of Heparin infusion. Overnight had small volume hematochezia on heparin infusion./
- HTN
- Heepatic steatosis
- h/o nasal polyps
Data:
CT-PE 12/2024: Small volume bilateral lower lobe pulmonary embolism. No findings to suggest right heart strain.
CT Abd-Pelvis 12/2024: 1. ACUTE PULMONARY ARTERIAL EMBOLIC DISEASE in the right lower lobe.
2. Moderate acute recurrent colitis in the transverse and descending colon. Diagnostic possibilities are (1) ACUTE ISCHEMIC COLITIS, (2) acute inflammatory bowel disease, or (3) an acute infectious colitis.
3. Large amount of fecal material in the proximal colon.
4. Mild to moderate diverticulosis in the sigmoid colon.
5. Mild hepatomegaly and mild diffuse hepatic steatosis.
6. 3.8 cm focal region of wall thickening in the gastric cardia and fundus. Diagnostic possibilities are (1) gastritis or (2) less likely gastric adenocarcinoma.
7. 3 mm nonobstructing right intrarenal calculus.
8. Severe discogenic degenerative disease at L4/L5 and L5/S1.
ECHO 2010 with bubble study. No R > L shunt noted
--- NOTE | 2024-12-19 09:23 | W.PN.HOSP.TC ---
Today's Communication/Plan
-
Flex sig
Assessment / Plan
Assessment / Plan
Physical exam:
General: Acutely ill and No Apparent Distress
HEENT: Normocephalic, Atraumatic and Moist Mucous Membranes
Respiratory: Clear to Auscultation; Negative Wheezes, Rales or Rhonchi
Cardiac: Regular Rhythm and S1/S2
GI: Soft, tender and Nondistended
Musculoskeletal: No Clubbing, No Cyanosis and No Edema
Neuro: Awake, Alert and Oriented, no neurological deficits
Psych: Calm
A/P:
Colitis:
Flex sig tomorrow today
Tapering off steroids
Started on oral Vanco-C. difficile antigen positive toxin negative
GI following
PE:
On IV heparin drip
Pulmonary consulted
Plan for Doppler and echo
Hypertension:
Not on any HTN meds and currently relatively hypotensive
Continue to monitor
Anemia:
Continue to monitor closely
DVT prophylaxis:
SCDs
CODE STATUS:
Full code
Anticipated Discharge: 24 - 48 hours
Subjective/Interval History
-
Date of Service: December 19, 2024
Patient had hematochezia overnight. Patient had bowel prep this morning. No chest pain or shortness of breath.
Objective Data
-
Labs:
Laboratory Results
12/19/24 12/19/24 12/19/24
02:57 06:58 09:14
WBC 5.6
Hgb 8.9 L
Hct 28.3 L
Plt Count 242
APTT 89.7 H Pending
Sodium 136
Potassium 4.4 D
Chloride 106
Carbon Dioxide 29
BUN 10
Creatinine 0.5 L
Glucose 91
Calcium 8.2 L
Total Bilirubin 0.4
AST 12 L
ALT 14
Alkaline Phosphatase 48
Vital Signs:
Vital Signs
Temp Pulse Resp BP Pulse Ox
98.0 F 83 16 99/68 98
12/19/24 07:53 12/19/24 07:53 12/19/24 07:53 12/19/24 07:53 12/19/24 07:53
[2024-12-19 09:58] LABS: APTT 104.1 Sec (23.4-35.0)
[2024-12-19 11:20] VITALS: BP 110/65
[2024-12-19] MEDS: NSS IV (12:29)
[2024-12-19] MEDS: FIRVANQ 125 MG PO ×3 (12:47→23:06)
--- NOTE | 2024-12-19 12:57 | CM ---
CM reviewed chart, reviewed with Nursing. Patient seen bedside, reports no needs to CM at this time. CM will continue to follow for all discharge planning needs.
Plan; home with family, no needs
[2024-12-19] MEDS: HEPARIN 25000 UNITS/250 ML IV (15:10)
[2024-12-19 15:28] VITALS: BMI 21.6
[2024-12-19 19:00] VITALS: BP 95/64
[2024-12-19 23:00] VITALS: BP 92/60
[2024-12-20 03:00] VITALS: BP 110/63
[2024-12-20] MEDS: FIRVANQ 125 MG PO ×4 (06:17→23:53)
[2024-12-20] MEDS: PROTONIX IV 40 MG IV ×2 (07:20→20:16)
[2024-12-20] MEDS: NSS (PRESERVATIVE FREE) 10 ML IV ×2 (07:20→20:13)
[2024-12-20] MEDS: VISBIOME 1 CAP PO ×2 (07:20→20:13)
[2024-12-20] MEDS: DELTASONE 10 MG PO (07:20)
[2024-12-20] MEDS: BENTYL 20 MG PO ×3 (07:20→20:13)
[2024-12-20 07:48] LABS: % Basophils 0.1 % (0-2); % Eosinophils 1.1 % (0-6); % Immature Granulocytes 1.5 % (0-0.5); % Lymphocytes 44.1 % (20.5-51.1); % Monocytes 9.9 % (1.7-9.3); % Neutrophils 43.3 % (42.2-75.2); Absolute Eosinophils 0.1 10^3/uL (0-0.7); Absolute Immature Granulocytes 0.1 10^3/uL (0-0.05); Absolute Lymphocytes 3.5 10^3/uL (1.2-3.4); Absolute Monocytes 0.8 10^3/uL (0.1-0.6); Absolute Neutrophils 3.5 10^3/uL (1.4-6.5); Hematocrit 28.1 % (37.0-47.0); Hemoglobin 8.9 g/dL (12.0-16.0); Mean Corp Hgb Conc. 31.7 g/dL (33.0-37.0); Mean Corpuscular Hgb 29.3 pg (27.0-31.0); Mean Corpuscular Volume 92.4 fL (81.0-99.0); Mean Platelet Volume 8.7 fL (7.4-10.4); Nucleated Red Blood Cells % 0 %; Platelet Count 249 10^3/uL (130-400); Red Blood Cell Count 3.04 10^6/uL (4.20-5.40); Red Cell Dist. Width 16.5 % (11.5-14.5)
[2024-12-20 07:49] VITALS: BP 120/69
--- NOTE | 2024-12-20 07:49 | W.PN.HOSP.TC ---
Today's Communication/Plan
-
Heparin drip. Oral vancomycin. GI reeval
Assessment / Plan
Assessment / Plan
Physical exam:
General: Acutely ill and No Apparent Distress
HEENT: Normocephalic, Atraumatic and Moist Mucous Membranes
Respiratory: Clear to Auscultation; Negative Wheezes, Rales or Rhonchi
Cardiac: Regular Rhythm and S1/S2
GI: Soft, non tender and Nondistended, hyperactive bowel sounds
Musculoskeletal: No Clubbing, No Cyanosis and No Edema
Neuro: Awake, Alert and Oriented, no neurological deficits
Psych: Calm
A/P:
Colitis-Subacute diarrhea/Lower GI bleeding with bright blood per rectum:
S/P Flex sig
Tapering off steroids
Started on oral Vanco-C. difficile antigen positive toxin negative
GI following
Discussed with at bedside today
PE:
On IV heparin drip
Pulmonary consulted--> discussed with pulmonary today he will prefer to continue IV heparin drip until not any more procedures and hemoglobin remains stable and less hematochezia.
Status post Doppler and echo and unremarkable
Hypertension:
Not on any HTN meds and currently relatively hypotensive
Continue to monitor
Anemia:
Continue to monitor closely
DVT prophylaxis:
SCDs
CODE STATUS:
Full code
Total time spent on today's encounter was 50 minutes which included time spent in counseling the patient/family regarding diagnosis and treatment plan as listed above, goals of care, and symptom management. Case was discussed with nursing staff,
specialists, and care coordinators/case management. All labs and imaging personally reviewed by me. Remainder the time spent in detailed review of previous records, lab data, imaging, and other medical provider documentation.
Anticipated Discharge: 24 - 48 hours
Subjective/Interval History
-
Date of Service: December 20, 2024
Patient still having bright blood per rectum and diarrhea. No chest pain or shortness of breath. Afebrile
Objective Data
-
Labs:
Laboratory Results
12/20/24
07:14
WBC 8.0
Hgb 8.9 L
Hct 28.1 L
Plt Count 249
APTT Pending
Sodium Pending
Potassium Pending
Chloride Pending
Carbon Dioxide Pending
BUN Pending
Creatinine Pending
Glucose Pending
Calcium Pending
Vital Signs:
Vital Signs
Temp Pulse Resp BP Pulse Ox
98.0 F 70 16 120/69 98
12/20/24 07:49 12/20/24 07:49 12/20/24 07:49 12/20/24 07:49 12/20/24 07:49
I&O
12/19/24 12/20/24 12/21/24
06:59 06:59 06:59
Intake Total 1000 / 1000
Balance 1000 / 1000
[2024-12-20 08:06] LABS: APTT 109.1 Sec (23.4-35.0)
[2024-12-20 08:18] LABS: Blood Urea Nitrogen 10 mg/dl (7-17); Calcium 8.4 mg/dl (8.4-10.2); Carbon Dioxide 29 mmol/L (22-30); Chloride 108 mmol/L (98-107); Estimated Creatinine Clearance 76 ml/min; Glucose 91 mg/dl (70-99); Potassium 3.7 mmol/L (3.5-5.1); Sodium 137 mmol/L (135-145); eGFR > 60.00
[2024-12-20] MEDS: HEPARIN 25000 UNITS/250 ML IV (10:07)
--- NOTE | 2024-12-20 11:03 | CM ---
CM reviewed chart, patient seen bedside on phone, no needs at this time. CM will continue to follow for all discharge planning needs
Plan; home no needs likely
[2024-12-20 11:53] VITALS: BP 120/69
--- NOTE | 2024-12-20 13:15 | W.PN.PUL3 ---
Today's Communication / Plan
-
- Continue IV heparin for now considering episodic hematochezia and hold off initiation of oral anticoagulants
- Monitor H&H
Assessment
-
#1. Acute Pulmonary embolism, bilateral
- Suspect provoked pulmonary embolism with recent hospitalization, active inflammation with colitis, recent long travel from [place]
- Overall low clot burden, no evidence of right heart strain on imaging. Patient hemodynamically stable and saturating well without any respiratory distress, on room air
- Lower extremity Doppler negative. Echocardiogram reviewed unremarkable without any right heart strain
- IV heparin infusing. Delaying transition to oral anticoagulants in view of ongoing hematochezia.
- If patient unable to tolerate anticoagulation and develops worsening hematochezia, will need to consider IVC filter
- Unless patient is diagnosed with a malignancy, this event appears to be provoked and will need 3 to 6 months of anticoagulation as long as underlying factors contributing to pulmonary embolism have resolved
- Patient had sigmoidoscopy performed on 12/19, poor colon prep noted, patient tolerated it poorly in the absence of anesthesia. Patient has ongoing hematochezia. Discussed with gastroenterology service. Considering patient's ongoing
hematochezia, need further evaluation with colonoscopy. With recent pulmonary embolism ideally we like to delay elective procedures requiring anesthesia however considering we already pursued conservative approach of medical management as well as
flexible sigmoidoscopy without anesthesia, it is prudent to move ahead with further workup including colonoscopy. Patient has low clot burden, echocardiogram is without any right heart strain and patient is hemodynamically stable on room air. I
discussed with the patient also and we discussed about increased risk with recent pulmonary embolism but clinically, I do not think risk is prohibitive considering low clot burden and overall hemodynamic stability. Recommend continuing IV heparin
for now, which can be temporarily paused if a colonoscopy were to be pursued in coming days.
Other medical diagnoses:
- Persistent colitis with episodic hematochezia, work up in progress. Anticipate sigmoidoscopy today with brief interruption of Heparin infusion. Overnight had small volume hematochezia on heparin infusion./
- HTN
- Heepatic steatosis
- h/o nasal polyps
Data:
CT-PE 12/2024: Small volume bilateral lower lobe pulmonary embolism. No findings to suggest right heart strain.
CT Abd-Pelvis 12/2024: 1. ACUTE PULMONARY ARTERIAL EMBOLIC DISEASE in the right lower lobe.
2. Moderate acute recurrent colitis in the transverse and descending colon. Diagnostic possibilities are (1) ACUTE ISCHEMIC COLITIS, (2) acute inflammatory bowel disease, or (3) an acute infectious colitis.
3. Large amount of fecal material in the proximal colon.
4. Mild to moderate diverticulosis in the sigmoid colon.
5. Mild hepatomegaly and mild diffuse hepatic steatosis.
6. 3.8 cm focal region of wall thickening in the gastric cardia and fundus. Diagnostic possibilities are (1) gastritis or (2) less likely gastric adenocarcinoma.
7. 3 mm nonobstructing right intrarenal calculus.
8. Severe discogenic degenerative disease at L4/L5 and L5/S1.
ECHO 2010 with bubble study. No R > L shunt noted
Subjective Data
-
Date of Service:
Date of Service: December 20, 2024
Subjective:
Patient feeling well from respiratory standpoint however continues to have low-grade hematochezia
Review of Systems
Genitourinary: Other (All 14 systems reviewed and negative except as stated above in the history of present illness.)
Objective Data
Data Reviewed
Vital Signs / I&O / Oxygen:
Vital Signs
Temp Pulse Resp BP Pulse Ox
98.0 F 70 16 120/69 98
12/20/24 11:53 12/20/24 11:53 12/20/24 11:53 12/20/24 11:53 12/20/24 11:53
Intake and Output
12/19/24 12/20/24 12/21/24
06:59 06:59 06:59
Intake Total 1000 / 1000
Balance 1000 / 1000
SaO2 98
Physical Exam
General: Comfortable
HEENT: Normocephalic
Cardiovascular: S1-S2
Respiratory: Clear and Non-Labored Respirations
GI: Soft and Non Distended
Neurology: Awake and Alert
Skin: Warm
Labs/Micro/Reports
Lab Data
12/20/24 07:14
12/20/24 07:14
Laboratory Results
12/20/24
07:14
APTT 109.1 H
Microbiology
12/18/24 17:11 Feces/Stool - Final
NO YERSINIA SPECIES ISOLATED
12/18/24 17:11 Feces/Stool Salmonella/Shigella Culture - Final
No Salmonella, Shigella, Aeromonas or Plesiomonas species
isolated.
12/18/24 17:11 Feces/Stool Campylobacter Culture - Final
No Campylobacter species isolated.
12/18/24 17:11 Feces/Stool Shiga Toxin Test - Final
No E. coli Shiga Toxin 1 or 2 detected.
12/18/24 17:11 Feces/Stool Stool Leukocytes - Final
12/18/24 17:11 Feces/Stool C. difficile GDH Antigen & Toxins - Final
C. difficile antigen positive, toxin negative.
Clostridium difficile present, but toxin not detected.
Patient may be a carrier, colonized with nontoxinogenic
strain or the level of toxin in sample is below detection
limits. This information should be used in conjunction with
the patient's clinical history.
12/18/24 17:11 Feces/Stool Cryptosporidium/Giardia - Final
Negative for Cryptosporidium and/or Giardia Lamblia
antigens.
[2024-12-20 15:55] VITALS: BP 109/64
--- NOTE | 2024-12-20 16:46 | W.PN.GI.CBS2 ---
Today's Communication / Plan
-
egd/colo if no improvement
Assessment / Plan
-
64 yo F who initially started having symptoms initially early November after having a meatball hoagie with nausea and vomiting. She underwent a CT in the ER at that point and was discharged. Then she developed bloody diarrhea up to 27 bowel movements a
day and was hypotensive with blood pressure of 70/48 which led to her going back to the emergency room and ultimately being admitted from December 06 to December 10. Per patient, she underwent 2 CT scans, no stool samples were done, colonoscopy. Tara have
reached out to their office and per their oral read of report to Tara ' sigmoid diverticulosis encountered. Active bleeding in the transverse colon. Colonoscopy aborted in transverse secondary to colitis. Random biopsy taken in transverse colon and
ulceration in sigmoid colon that was 2 cm. Sparing in rectum and distal sigmoid colon. Path: Transverse colon: acute granulation tissue with fibropurulent exudate consistent with ulcer. Sigmoid ulcer: acute granulation tissue with fibropurulent
exudate consistent with ulcer. Negative for microscopic colitis, negative for dysplasia or malignancy.' She was discharged and then followed up with GI outpatient and was ultimately started on steroids. They started her on 60 mg a day and she
tapered every 3 days and she is currently on 15 mg. Her stools did decrease in terms of the frequency now down to 8 bowel movements a day. She has not seen blood in her stool since December 02. She noted her stools were more watery since she decreased
to 15 mg but unclear if it was due to that or her diet. She has some pain before a bowel movement, some urgency, incontinence, nocturnal bowel movements. She has lost 15 pounds. Unclear family history her mom has colitis but not on any chronic
medications and her brother has GI issues unclear what those are. No known autoimmune conditions.
Patient was sent in by her outpatient primary care doctor as she underwent a CT scan which showed a pulmonary embolus. She was referred back to the emergency room. CT also showed colitis in the descending and TC c/w ischemic colitis, IBD, vs
infectious as well as large amount of stool in right colon. Other findings: thickening of stomach, fatty liver, mild wall thickening of jejunum.
Pulmonology has seen her and she is currently on a heparin drip. Likely VTE was multifactorial on d/w pulm due to hospitalization, colitis, car ride.
I did an unsedated flex sig yesterday which due to patient discomfort was limited only to sigmoid. Sigmoid looked normal I d/w path also normal.
Differential: ischemia (usually involves sigmoid, although did at OSH), IBD (Crohn's), infectious (seems to be a longer than expected time course).
I d/w pulm OK to do sedation if needed at this interval given ongoing bloody diarrhea.
Will start clear liquid diet tomorrow and plan EGD (given stomach thickening)/cscope in upcoming days.
Currently on 10 mg of pred today and tomorrow with last dose tomorrow unless scope findings indicate otherwise (if IBD would place on IV steroids).
C diff Ag pos, toxin neg started on vanco no improvement.
With jejunal thickening t/c outpatient MRE
Outpatient eval for fatty liver
Subjective
Subjective
Date of Service: December 20, 2024
Still with diarrhea now with increased bleeding
Objective
Data Reviewed
Laboratory Data:
Laboratory Results
12/20/24 07:14
12/20/24 07:14
Laboratory Results
PT 12.8 Sec (11.4-14.6) 12/18/24 10:36
INR 0.93 12/18/24 10:36
APTT 109.1 Sec (23.4-35.0) H 12/20/24 07:14
Total Bilirubin 0.4 mg/dl (0.2-1.3) 12/19/24 06:58
AST 12 U/L (14-36) L 12/19/24 06:58
ALT 14 U/L (0-35) 12/19/24 06:58
Alkaline Phosphatase 48 U/L (38-126) 12/19/24 06:58
Vital Signs and I&O:
Vital Signs
Temp Pulse Resp BP Pulse Ox
99.1 F 74 16 109/64 98
12/20/24 15:55 12/20/24 15:55 12/20/24 15:55 12/20/24 15:55 12/20/24 15:55
I&O
12/19/24 12/20/24 12/21/24
06:59 06:59 06:59
Intake Total 1000 / 1000
Balance 1000 / 1000
Physical Exam
Physical Exam
GI: Non Distended and Non Tender
[2024-12-20 19:00] VITALS: BP 103/69
[2024-12-20 23:00] VITALS: BP 110/62
[2024-12-21 03:00] VITALS: BP 107/63
[2024-12-21] MEDS: FIRVANQ 125 MG PO ×4 (05:33→23:22)
[2024-12-21 07:06] VITALS: BP 113/71
[2024-12-21] MEDS: HEPARIN 25000 UNITS/250 ML IV (07:23)
[2024-12-21] MEDS: PROTONIX IV 40 MG IV ×2 (07:25→20:27)
[2024-12-21] MEDS: NSS (PRESERVATIVE FREE) 10 ML IV ×2 (07:25→20:27)
[2024-12-21] MEDS: VISBIOME 1 CAP PO ×2 (07:25→20:26)
[2024-12-21] MEDS: DELTASONE 10 MG PO (07:25)
[2024-12-21] MEDS: BENTYL 20 MG PO ×3 (07:25→21:02)
[2024-12-21] MEDS: FEOSOL 325 MG PO (07:29)
[2024-12-21 07:43] LABS: APTT 115.1 Sec (23.4-35.0)
[2024-12-21 07:49] LABS: Hemoglobin 8.7 g/dL (12.0-16.0); Mean Corp Hgb Conc. 32.2 g/dL (33.0-37.0); Mean Corpuscular Hgb 29.8 pg (27.0-31.0); Mean Corpuscular Volume 92.5 fL (81.0-99.0); Mean Platelet Volume 8.8 fL (7.4-10.4); Platelet Count 226 10^3/uL (130-400); Red Blood Cell Count 2.92 10^6/uL (4.20-5.40); Red Cell Dist. Width 16.8 % (11.5-14.5); White Blood Cell Count 7.3 10^3/uL (4.8-10.8)
[2024-12-21 08:47] LABS: Blood Urea Nitrogen 12 mg/dl (7-17); Calcium 8.4 mg/dl (8.4-10.2); Carbon Dioxide 28 mmol/L (22-30); Chloride 109 mmol/L (98-107); Estimated Creatinine Clearance 76 ml/min; Glucose 82 mg/dl (70-99); Potassium 3.9 mmol/L (3.5-5.1); Sodium 136 mmol/L (135-145); eGFR > 60.00
--- NOTE | 2024-12-21 10:04 | W.PN.HOSP.TC ---
Today's Communication/Plan
-
IV heparin drip. Plan to do colonoscopy
Assessment / Plan
Assessment / Plan
Physical exam:
General: Acutely ill and No Apparent Distress
HEENT: Normocephalic, Atraumatic and Moist Mucous Membranes
Respiratory: Clear to Auscultation; Negative Wheezes, Rales or Rhonchi
Cardiac: Regular Rhythm and S1/S2
GI: Soft, non tender and Nondistended, hyperactive bowel sounds
Musculoskeletal: No Clubbing, No Cyanosis and No Edema
Neuro: Awake, Alert and Oriented, no neurological deficits
Psych: Calm
A/P:
Colitis-Subacute diarrhea/Lower GI bleeding with bright blood per rectum:
S/P Flex sig
Tapering off steroids
Started on oral Vanco-C. difficile antigen positive toxin negative
GI following
Discussed with at bedside yesterday
GI planning to do a colonoscopy +/- egd-will defer timing to GI
PE:
On IV heparin drip
Pulmonary consulted--> discussed with pulmonary yesterday and he will prefer to continue IV heparin drip until not any more procedures and hemoglobin remains stable and less hematochezia. Pulmonary suggests continue current recommendations.
Status post Doppler and echo and unremarkable
Hypertension:
Not on any HTN meds and currently relatively hypotensive
Continue to monitor
Anemia:
Continue to monitor closely
DVT prophylaxis:
SCDs
CODE STATUS:
Full code
Total time spent on today's encounter was 50 minutes which included time spent in counseling the patient/family regarding diagnosis and treatment plan as listed above, goals of care, and symptom management. Case was discussed with nursing staff,
specialists, and care coordinators/case management. All labs and imaging personally reviewed by me. Remainder the time spent in detailed review of previous records, lab data, imaging, and other medical provider documentation.
Anticipated Discharge: > 48 hours
Subjective/Interval History
-
Date of Service: December 21, 2024
Patient with less hematochezia. Still having diarrhea. No chest pain or shortness of breath. Afebrile
Objective Data
-
Labs:
Laboratory Results
12/21/24 12/21/24 12/21/24
07:01 07:24 14:20
WBC 7.3
Hgb 8.7 L
Hct 27.0 L
Plt Count 226
APTT 115.1 H Pending
Sodium 136
Potassium 3.9
Chloride 109 H
Carbon Dioxide 28
BUN 12
Creatinine 0.6
Glucose 82
Calcium 8.4
Vital Signs:
Vital Signs
Temp Pulse Resp BP Pulse Ox
98.2 F 81 16 113/71 99
12/21/24 07:06 12/21/24 07:06 12/21/24 07:06 12/21/24 07:06 12/21/24 07:06
I&O
12/20/24 12/21/24 12/22/24
06:59 06:59 06:59
Intake Total 1000 / 1000 1859
Balance 1000 / 1000 1859
[2024-12-21 11:05] VITALS: BP 111/62
--- NOTE | 2024-12-21 12:46 | W.PN.PUL3 ---
Today's Communication / Plan
-
- Continue heparin infusion for now
- Hold off transition to oral anticoagulants in view of persistent episodic hematochezia
Assessment
-
#1. Acute Pulmonary embolism, bilateral
- Suspect provoked pulmonary embolism with recent hospitalization, active inflammation with colitis, recent long travel from [place]
- Overall low clot burden, no evidence of right heart strain on imaging. Patient hemodynamically stable and saturating well without any respiratory distress, on room air
- Lower extremity Doppler negative. Echocardiogram reviewed unremarkable without any right heart strain
- IV heparin infusing. Delaying transition to oral anticoagulants in view of ongoing hematochezia.
- Continued low intermittent hematochezia noted however hemoglobin overall stable and patient hemodynamically stable on heparin drip
- Unless patient is diagnosed with a malignancy, this event appears to be provoked and will need 3 to 6 months of anticoagulation as long as underlying factors contributing to pulmonary embolism have resolved
- Patient had sigmoidoscopy performed on 12/19, poor colon prep noted, patient tolerated it poorly in the absence of anesthesia. Patient has ongoing hematochezia. Discussed with gastroenterology service. Considering patient's ongoing
hematochezia, need further evaluation with colonoscopy. With recent pulmonary embolism ideally we like to delay elective procedures requiring anesthesia however considering we already pursued conservative approach of medical management as well as
flexible sigmoidoscopy without anesthesia, it is prudent to move ahead with further workup including colonoscopy. Patient has low clot burden, echocardiogram is without any right heart strain and patient is hemodynamically stable on room air. I
discussed with the patient also and we discussed about increased risk with recent pulmonary embolism but clinically, I do not think risk is prohibitive considering low clot burden and overall hemodynamic stability. Recommend continuing IV heparin
for now, which can be temporarily paused if a colonoscopy were to be pursued in coming days.
Other medical diagnoses:
- Persistent colitis with episodic hematochezia, work up in progress.
- HTN
- Heepatic steatosis
- h/o nasal polyps
Total time spent on this consultation/encounter _38__ minutes which includes review of history, physical exam, medications, laboratory data, personal review of imaging, extensive review of outpatient records, discussion with care team and
respiratory therapy.
Data:
CT-PE 12/2024: Small volume bilateral lower lobe pulmonary embolism. No findings to suggest right heart strain.
CT Abd-Pelvis 12/2024: 1. ACUTE PULMONARY ARTERIAL EMBOLIC DISEASE in the right lower lobe.
2. Moderate acute recurrent colitis in the transverse and descending colon. Diagnostic possibilities are (1) ACUTE ISCHEMIC COLITIS, (2) acute inflammatory bowel disease, or (3) an acute infectious colitis.
3. Large amount of fecal material in the proximal colon.
4. Mild to moderate diverticulosis in the sigmoid colon.
5. Mild hepatomegaly and mild diffuse hepatic steatosis.
6. 3.8 cm focal region of wall thickening in the gastric cardia and fundus. Diagnostic possibilities are (1) gastritis or (2) less likely gastric adenocarcinoma.
7. 3 mm nonobstructing right intrarenal calculus.
8. Severe discogenic degenerative disease at L4/L5 and L5/S1.
ECHO 2010 with bubble study. No R > L shunt noted
Subjective Data
-
Date of Service:
Date of Service: December 21, 2024
Subjective:
Patient comfortably sitting in bed, on room air, saturating well.
Review of Systems
Genitourinary: Other (No new symptoms reported.)
Objective Data
Data Reviewed
Vital Signs / I&O / Oxygen:
Vital Signs
Temp Pulse Resp BP Pulse Ox
98.0 F 76 16 111/62 98
12/21/24 11:05 12/21/24 11:05 12/21/24 11:05 12/21/24 11:05 12/21/24 11:05
Intake and Output
12/20/24 12/21/24 12/22/24
06:59 06:59 06:59
Intake Total 1000 / 1000 1859
Balance 1000 / 1000 1859
SaO2 98
Physical Exam
General: Comfortable
HEENT: Normocephalic
Cardiovascular: S1-S2
Respiratory: Clear and Non-Labored Respirations
GI: Soft and Non Distended
Neurology: Awake and Alert
Skin: Warm
Labs/Micro/Reports
Lab Data
12/21/24 07:01
12/21/24 07:01
Laboratory Results
12/21/24
07:24
APTT 115.1 H
Microbiology
12/18/24 17:11 Feces/Stool - Final
NO YERSINIA SPECIES ISOLATED
12/18/24 17:11 Feces/Stool Salmonella/Shigella Culture - Final
No Salmonella, Shigella, Aeromonas or Plesiomonas species
isolated.
12/18/24 17:11 Feces/Stool Campylobacter Culture - Final
No Campylobacter species isolated.
12/18/24 17:11 Feces/Stool Shiga Toxin Test - Final
No E. coli Shiga Toxin 1 or 2 detected.
12/18/24 17:11 Feces/Stool Stool Leukocytes - Final
12/18/24 17:11 Feces/Stool C. difficile GDH Antigen & Toxins - Final
C. difficile antigen positive, toxin negative.
Clostridium difficile present, but toxin not detected.
Patient may be a carrier, colonized with nontoxinogenic
strain or the level of toxin in sample is below detection
limits. This information should be used in conjunction with
the patient's clinical history.
12/18/24 17:11 Feces/Stool Cryptosporidium/Giardia - Final
Negative for Cryptosporidium and/or Giardia Lamblia
antigens.
[2024-12-21 14:32] LABS: APTT 99.4 Sec (23.4-35.0)
--- NOTE | 2024-12-21 14:34 | W.PN.GI.CBS2 ---
Today's Communication / Plan
-
EGD/colonoscopy tomorrow a.m.
Bowel prep today
Hold heparin 12/22 at 5 AM
Assessment / Plan
-
64 yo F who initially started having symptoms initially early November after having a meatball hoagie with nausea and vomiting. She underwent a CT in the ER at that point and was discharged. Then she developed bloody diarrhea up to 27 bowel movements a
day and was hypotensive with blood pressure of 70/48 which led to her going back to the emergency room and ultimately being admitted from December 06 to December 10. Per patient, she underwent 2 CT scans, no stool samples were done, colonoscopy. Tara have
reached out to their office and per their oral read of report to Tara ' sigmoid diverticulosis encountered. Active bleeding in the transverse colon. Colonoscopy aborted in transverse secondary to colitis. Random biopsy taken in transverse colon and
ulceration in sigmoid colon that was 2 cm. Sparing in rectum and distal sigmoid colon. Path: Transverse colon: acute granulation tissue with fibropurulent exudate consistent with ulcer. Sigmoid ulcer: acute granulation tissue with fibropurulent
exudate consistent with ulcer. Negative for microscopic colitis, negative for dysplasia or malignancy.' She was discharged and then followed up with GI outpatient and was ultimately started on steroids. They started her on 60 mg a day and she
tapered every 3 days and she is currently on 15 mg. Her stools did decrease in terms of the frequency now down to 8 bowel movements a day. She has not seen blood in her stool since December 02. She noted her stools were more watery since she decreased
to 15 mg but unclear if it was due to that or her diet. She has some pain before a bowel movement, some urgency, incontinence, nocturnal bowel movements. She has lost 15 pounds. Unclear family history her mom has colitis but not on any chronic
medications and her brother has GI issues unclear what those are. No known autoimmune conditions.
Patient was sent in by her outpatient primary care doctor as she underwent a CT scan which showed a pulmonary embolus. She was referred back to the emergency room. CT also showed colitis in the descending and TC c/w ischemic colitis, IBD, vs
infectious as well as large amount of stool in right colon. Other findings: thickening of stomach, fatty liver, mild wall thickening of jejunum.
Pulmonology has seen her and she is currently on a heparin drip. Likely VTE was multifactorial on d/w pulm due to hospitalization, colitis, car ride.
unsedated flex sig 12/19 - due to patient discomfort was limited only to sigmoid. Sigmoid looked normal .Bx path also normal.
--Colitis --Differential: ischemia (usually involves sigmoid, although did at OSH), IBD (Crohn's), infectious (seems to be a longer than expected time course).
-- Acute PE - on heparin
plan
pulm /anesthesia (Dr. Bello ) Ok to do sedation for EGD/ colonoscopy
Continue clear liquid diet
EGD/colonoscopy tomorrow
bowel prep today
Hold heparin 12/22 at 0500
Completed oral steroid taper
C diff Ag pos, toxin neg started on vanco - no improvement.
CT showing jejunal thickening - outpatient MRE
Outpatient eval for fatty liver
Follow-up with Dr. Awad on discharge
Total Time Spent with Patient (in minutes): 35
Subjective
Subjective
Date of Service: December 21, 2024
Patient continues to have loose stools. Mild abdominal discomfort. No nausea or vomiting
Objective
Data Reviewed
Laboratory Data:
Laboratory Results
12/21/24 07:01
12/21/24 07:01
Laboratory Results
PT 12.8 Sec (11.4-14.6) 12/18/24 10:36
INR 0.93 12/18/24 10:36
APTT 99.4 Sec (23.4-35.0) H 12/21/24 14:13
Total Bilirubin 0.4 mg/dl (0.2-1.3) 12/19/24 06:58
AST 12 U/L (14-36) L 12/19/24 06:58
ALT 14 U/L (0-35) 12/19/24 06:58
Alkaline Phosphatase 48 U/L (38-126) 12/19/24 06:58
Vital Signs and I&O:
Vital Signs
Temp Pulse Resp BP Pulse Ox
98.0 F 76 16 111/62 98
12/21/24 11:05 12/21/24 11:05 12/21/24 11:05 12/21/24 11:05 12/21/24 11:05
I&O
12/20/24 12/21/24 12/22/24
06:59 06:59 06:59
Intake Total 999 / 999
Balance 1000 / 999
Physical Exam
Physical Exam
GI: Soft, Non Distended and Non Tender
[2024-12-21 14:40] VITALS: BP 105/65
--- NOTE | 2024-12-21 15:32 | CM ---
CM reviewed chart, patient for EGD/colonoscopy tomorrow. Patient plan remains home no needs, will continue to follow for all discharge planning needs.
Plan; home no needs when stable
[2024-12-21] MEDS: NULYTELY SOLUTION 4 LITERS PO (16:58)
--- NOTE | 2024-12-21 17:49 | PTCARENOTE ---
Assumed care of pt from previous nurse. Pt denies pain. Pt started colonoscopy prep, will be npo after midnight. Per [facility], heparin drip to be placed on hold at 0500 12/22 for 9am procedure. Call alexis is within reach, pt rings archie. will
cont to monitor.
[2024-12-21 19:20] VITALS: BP 123/74
[2024-12-21 21:09] LABS: Calprotectin, Fecal >3000 ug/g (<=49)
[2024-12-21 21:30] LABS: APTT 90.3 Sec (23.4-35.0)
[2024-12-21 23:25] VITALS: BP 106/77
[2024-12-22 03:21] VITALS: BP 116/71
[2024-12-22] MEDS: FIRVANQ 125 MG PO ×3 (06:16→18:13)
[2024-12-22] MEDS: BENTYL PO (07:24)
[2024-12-22] MEDS: NSS (PRESERVATIVE FREE) 10 ML IV ×2 (07:32→20:12)
[2024-12-22] MEDS: PROTONIX IV 40 MG IV ×2 (07:33→20:12)
[2024-12-22] MEDS: DELTASONE PO (07:55)
[2024-12-22] MEDS: VISBIOME PO (07:55)
[2024-12-22 08:14] VITALS: BP 96/57
--- NOTE | 2024-12-22 08:16 | PTCARENOTE ---
Assumed care of pt from previous nurse. Pt denies pain. pt heparin drip on hold since 0500. Pt is on tele running nsr. Pt call alexis is within reach, pt rings archie. will cont to monitor. completed bowel prep, npo.
[2024-12-22 08:35] LABS: Hematocrit 28.4 % (37.0-47.0); Hemoglobin 9.2 g/dL (12.0-16.0); Mean Corp Hgb Conc. 32.4 g/dL (33.0-37.0); Mean Corpuscular Hgb 29.8 pg (27.0-31.0); Mean Corpuscular Volume 91.9 fL (81.0-99.0); Platelet Count 242 10^3/uL (130-400); Red Blood Cell Count 3.09 10^6/uL (4.20-5.40); Red Cell Dist. Width 17.2 % (11.5-14.5); White Blood Cell Count 9.6 10^3/uL (4.8-10.8)
[2024-12-22 09:16] LABS: Blood Urea Nitrogen 9 mg/dl (7-17); Carbon Dioxide 25 mmol/L (22-30); Chloride 106 mmol/L (98-107); Estimated Creatinine Clearance 76 ml/min; Glucose 75 mg/dl (70-99); Potassium 3.5 mmol/L (3.5-5.1); Sodium 134 mmol/L (135-145); eGFR > 60.00
[2024-12-22] MEDS: SOLU-MEDROL PF 20 MG IV ×2 (11:17→18:13)
[2024-12-22] MEDS: VISBIOME 1 CAP PO ×2 (11:19→20:12)
--- NOTE | 2024-12-22 11:27 | W.PN.HOSP.TC ---
Today's Communication/Plan
-
EGD/colonoscopy. IV steroids.
Assessment / Plan
Assessment / Plan
Physical exam:
General: Acutely ill and No Apparent Distress
HEENT: Normocephalic, Atraumatic and Moist Mucous Membranes
Respiratory: Clear to Auscultation; Negative Wheezes, Rales or Rhonchi
Cardiac: Regular Rhythm and S1/S2
GI: Soft, non tender and Nondistended, hyperactive bowel sounds
Musculoskeletal: No Clubbing, No Cyanosis and No Edema
Neuro: Awake, Alert and Oriented, no neurological deficits
Psych: Calm
A/P:
Colitis, likely Crohn's disease:
Status post EGD and colonoscopy today
Started on IV Solu-Medrol 20 mg IV every 8 hours
Continue oral vancomycin (C. difficile antigen positive and toxin negative)
On full liquid diet per GI
PE:
On IV heparin drip
Pulmonary consulted--> discussed with pulmonary yesterday and he will prefer to continue IV heparin drip until not any more procedures and hemoglobin remains stable and less hematochezia. Pulmonary suggests continue current recommendations.
Status post Doppler and echo and unremarkable
Hypertension:
Not on any HTN meds and currently relatively hypotensive
Continue to monitor
Anemia:
Continue to monitor closely
DVT prophylaxis:
SCDs
CODE STATUS:
Full code
Total time spent on today's encounter was 50 minutes which included time spent in counseling the patient/family regarding diagnosis and treatment plan as listed above, goals of care, and symptom management. Case was discussed with nursing staff,
specialists, and care coordinators/case management. All labs and imaging personally reviewed by me. Remainder the time spent in detailed review of previous records, lab data, imaging, and other medical provider documentation.
Anticipated Discharge: > 48 hours
Subjective/Interval History
-
Date of Service: December 22, 2024
Still having diarrhea, less hematochezia. No shortness of breath
Objective Data
-
Labs:
Laboratory Results
12/22/24 12/22/24
06:46 11:21
WBC 9.6
Hgb 9.2 L
Hct 28.4 L
Plt Count 242
APTT Pending
Sodium 134 L
Potassium 3.5
Chloride 106
Carbon Dioxide 25
BUN 9
Creatinine 0.6
Glucose 75
Calcium 8.0 L
Vital Signs:
Vital Signs
Temp Pulse Resp BP Pulse Ox
98.1 F 94 16 96/57 98
12/22/24 08:14 12/22/24 08:14 12/22/24 08:14 12/22/24 08:14 12/22/24 08:14
I&O
12/21/24 12/22/24 12/23/24
06:59 06:59 06:59
Intake Total 1859
Balance 1859
[2024-12-22 11:32] VITALS: BP 94/60
--- NOTE | 2024-12-22 14:13 | W.PN.PUL3 ---
Addendum entered and electronically signed by Hany Saravia MD 12/23/24 11:00:
Pulmonary service will sign off
Agree with transition to PO Eliquis. Out patient follow up with Pulm clinic in 1-2 months. Information added to d/c section. Please call as needed.
Original Note:
Today's Communication / Plan
-
- Resume heparin postprocedure
- If tolerates heparin infusion well, transition to oral anticoagulants 12/23
Assessment
-
#1. Acute Pulmonary embolism, bilateral
- Suspect provoked pulmonary embolism with recent hospitalization, active inflammation with colitis, recent long travel from [place]
- Overall low clot burden, no evidence of right heart strain on imaging. Patient hemodynamically stable and saturating well without any respiratory distress, on room air
- Lower extremity Doppler negative. Echocardiogram reviewed unremarkable without any right heart strain
- IV heparin infusing. Delaying transition to oral anticoagulants in view of ongoing hematochezia.
- S/p colonoscopy 12/22, suggestive of Crohn's disease. Resume heparin postprocedure.
- If tolerates anticoagulation well overnight, will transition to oral anticoagulants 12/23
Other medical diagnoses:
- Persistent colitis with episodic hematochezia, work up in progress. ? Inflammatory bowel disease
- HTN
- Heepatic steatosis
- h/o nasal polyps
Total time spent on this consultation/encounter _42__ minutes which includes review of history, physical exam, medications, laboratory data, personal review of imaging, extensive review of outpatient records, discussion with care team and
respiratory therapy.
Data:
CT-PE 12/2024: Small volume bilateral lower lobe pulmonary embolism. No findings to suggest right heart strain.
CT Abd-Pelvis 12/2024: 1. ACUTE PULMONARY ARTERIAL EMBOLIC DISEASE in the right lower lobe.
2. Moderate acute recurrent colitis in the transverse and descending colon. Diagnostic possibilities are (1) ACUTE ISCHEMIC COLITIS, (2) acute inflammatory bowel disease, or (3) an acute infectious colitis.
3. Large amount of fecal material in the proximal colon.
4. Mild to moderate diverticulosis in the sigmoid colon.
5. Mild hepatomegaly and mild diffuse hepatic steatosis.
6. 3.8 cm focal region of wall thickening in the gastric cardia and fundus. Diagnostic possibilities are (1) gastritis or (2) less likely gastric adenocarcinoma.
7. 3 mm nonobstructing right intrarenal calculus.
8. Severe discogenic degenerative disease at L4/L5 and L5/S1.
ECHO 2010 with bubble study. No R > L shunt noted
Subjective Data
-
Date of Service:
Date of Service: December 22, 2024
Subjective:
Patient seen and examined, no new symptoms reported.
Review of Systems
Genitourinary: Other (All 14 systems reviewed and negative except as stated above in the history of present illness.)
Objective Data
Data Reviewed
Vital Signs / I&O / Oxygen:
Vital Signs
Temp Pulse Resp BP Pulse Ox
98 F 93 16 94/60 99
12/22/24 11:32 12/22/24 11:32 12/22/24 11:32 12/22/24 11:32 12/22/24 11:32
Intake and Output
12/21/24 12/22/24 12/23/24
06:59 06:59 06:59
Intake Total 1859
Balance 1859
SaO2 99
Physical Exam
General: Comfortable
HEENT: Normocephalic
Cardiovascular: S1-S2
Respiratory: Clear and Non-Labored Respirations
GI: Soft and Non Distended
Neurology: Awake and Alert
Skin: Warm
Labs/Micro/Reports
Lab Data
12/22/24 06:46
12/22/24 06:46
Laboratory Results
12/21/24 12/21/24 12/22/24
14:13 20:44 11:21
APTT 99.4 H 90.3 H 22.0 L
Microbiology
12/18/24 17:11 Feces/Stool - Final
NO YERSINIA SPECIES ISOLATED
12/18/24 17:11 Feces/Stool Salmonella/Shigella Culture - Final
No Salmonella, Shigella, Aeromonas or Plesiomonas species
isolated.
12/18/24 17:11 Feces/Stool Campylobacter Culture - Final
No Campylobacter species isolated.
12/18/24 17:11 Feces/Stool Shiga Toxin Test - Final
No E. coli Shiga Toxin 1 or 2 detected.
12/18/24 17:11 Feces/Stool Stool Leukocytes - Final
[2024-12-22] MEDS: HEPARIN 25000 UNITS/250 ML IV (14:46)
[2024-12-22 15:26] VITALS: BP 85/56
--- NOTE | 2024-12-22 16:17 | CM ---
CM consulted for [employer] pricing
CM called RX plan to review benefits and estimated co pay
For 30 day retail supply- covered w/ $0 co pay, for 90 day mail order- covered w/ $0 co pay
Updated ordering physician
[2024-12-22] MEDS: BENTYL 20 MG PO ×2 (16:22→22:00)
[2024-12-22 20:28] LABS: APTT 67.1 Sec (23.4-35.0)
[2024-12-22 23:01] VITALS: BP 105/66
[2024-12-23] MEDS: FIRVANQ 125 MG PO ×4 (00:55→17:27)
[2024-12-23] MEDS: SOLU-MEDROL PF 20 MG IV ×3 (01:19→17:27)
[2024-12-23 02:50] LABS: APTT 115.6 Sec (23.4-35.0)
[2024-12-23 07:00] VITALS: BP 118/62
[2024-12-23] MEDS: BENTYL 20 MG PO ×3 (07:57→22:17)
[2024-12-23] MEDS: VISBIOME 1 CAP PO ×2 (07:57→20:18)
[2024-12-23] MEDS: NSS (PRESERVATIVE FREE) 10 ML IV ×2 (07:58→20:18)
[2024-12-23] MEDS: PROTONIX IV 40 MG IV ×2 (07:58→20:18)
[2024-12-23] MEDS: ELIQUIS 10 MG PO ×2 (09:24→20:18)
[2024-12-23 09:51] LABS: % Immature Granulocytes 0.5 % (0-0.5); % Monocytes 6.3 % (1.7-9.3); % Neutrophils 78.2 % (42.2-75.2); Absolute Lymphocytes 0.9 10^3/uL (1.2-3.4); Absolute Monocytes 0.4 10^3/uL (0.1-0.6); Absolute Neutrophils 4.6 10^3/uL (1.4-6.5); Hematocrit 28.9 % (37.0-47.0); Hemoglobin 9.2 g/dL (12.0-16.0); Mean Corp Hgb Conc. 31.8 g/dL (33.0-37.0); Mean Corpuscular Hgb 29.4 pg (27.0-31.0); Mean Corpuscular Volume 92.3 fL (81.0-99.0); Mean Platelet Volume 8.9 fL (7.4-10.4); Nucleated Red Blood Cells % 0 %; Platelet Count 253 10^3/uL (130-400); Red Blood Cell Count 3.13 10^6/uL (4.20-5.40); Red Cell Dist. Width 16.9 % (11.5-14.5); White Blood Cell Count 5.9 10^3/uL (4.8-10.8)
[2024-12-23 10:32] LABS: Blood Urea Nitrogen 8 mg/dl (7-17); Carbon Dioxide 29 mmol/L (22-30); Chloride 105 mmol/L (98-107); Estimated Creatinine Clearance 76 ml/min; Glucose 132 mg/dl (70-99); Potassium 4.6 mmol/L (3.5-5.1); Sodium 135 mmol/L (135-145); eGFR > 60.00
--- NOTE | 2024-12-23 11:34 | W.PN.GI.CBS2 ---
Today's Communication / Plan
-
Low residual diet
Continue IV steroids
Follow-up colonoscopy path results
Outpatient GI follow-up
Assessment / Plan
-
64 yo F who initially started having symptoms initially early November after having a meatball hoagie with nausea and vomiting. She underwent a CT in the ER at that point and was discharged. Then she developed bloody diarrhea up to 27 bowel movements a
day and was hypotensive with blood pressure of 70/48 which led to her going back to the emergency room and ultimately being admitted from December 06 to December 10. Per patient, she underwent 2 CT scans, no stool samples were done, colonoscopy. Tara have
reached out to their office and per their oral read of report to Tara ' sigmoid diverticulosis encountered. Active bleeding in the transverse colon. Colonoscopy aborted in transverse secondary to colitis. Random biopsy taken in transverse colon and
ulceration in sigmoid colon that was 2 cm. Sparing in rectum and distal sigmoid colon. Path: Transverse colon: acute granulation tissue with fibropurulent exudate consistent with ulcer. Sigmoid ulcer: acute granulation tissue with fibropurulent
exudate consistent with ulcer. Negative for microscopic colitis, negative for dysplasia or malignancy.' She was discharged and then followed up with GI outpatient and was ultimately started on steroids. They started her on 60 mg a day and she
tapered every 3 days and she is currently on 15 mg. Her stools did decrease in terms of the frequency now down to 8 bowel movements a day. She has not seen blood in her stool since December 02. She noted her stools were more watery since she decreased
to 15 mg but unclear if it was due to that or her diet. She has some pain before a bowel movement, some urgency, incontinence, nocturnal bowel movements. She has lost 15 pounds. Unclear family history her mom has colitis but not on any chronic
medications and her brother has GI issues unclear what those are. No known autoimmune conditions.
Patient was sent in by her outpatient primary care doctor as she underwent a CT scan which showed a pulmonary embolus. She was referred back to the emergency room. CT also showed colitis in the descending and TC c/w ischemic colitis, IBD, vs
infectious as well as large amount of stool in right colon. Other findings: thickening of stomach, fatty liver, mild wall thickening of jejunum.
Pulmonology has seen her and she is currently on a heparin drip. Likely VTE was multifactorial on d/w pulm due to hospitalization, colitis, car ride.
unsedated flex sig 12/19 - due to patient discomfort was limited only to sigmoid. Sigmoid looked normal .Bx path also normal.
--Colitis --Differential: ischemia (usually involves sigmoid, although did at OSH), IBD (Crohn's), infectious (seems to be a longer than expected time course).
-- Acute PE - on heparin
EGD 12/22
Impression: - LA Grade A esophagitis.
- Gastritis. Biopsied.
- Normal examined duodenum. Biopsied.
colonoscopy 12/22
Impression: - The examined portion of the ileum was normal.
- Findings are consistent with Crohn's disease.
Inflammation was found in the sigmoid colon, in the
descending colon, in the transverse colon, in the
ascending colon and at the cecum. This was
moderate-severe in severity. Biopsied.
The rectum and the distal sigmoid colon were spared
- Diverticulosis in the sigmoid colon.
Stool calprotectin over 3000
plan
Based on colonoscopy findings/elevated calprotectin -consistent with Crohn's disease.
Started on IV Solu-Medrol after colonoscopy. Clinically doing well. Tolerating liquid diet. stools consistency getting formed now.
Follow-up colonoscopy path results
Will advance to low residual diet
Stool cx negative . C diff Ag pos, toxin neg started on vanco - no improvement. Will recommend completing it
Management of PE as per medical team/pulmonary
Hepatitis B serologies/TB QuantiFERON ordered for outpatient biologic treatment initiation
CT showing jejunal thickening - outpatient MRE
Outpatient eval for fatty liver
Follow-up with Dr. Awad on discharge
Total Time Spent with Patient (in minutes): 35
Subjective
Subjective
Date of Service: December 23, 2024
Feeling better. Stools getting formed. Some blood tinge material with stool
Objective
Data Reviewed
Laboratory Data:
Laboratory Results
12/23/24 09:37
12/23/24 09:37
Laboratory Results
PT 12.8 Sec (11.4-14.6) 12/18/24 10:36
INR 0.93 12/18/24 10:36
APTT 115.6 Sec (23.4-35.0) H 12/23/24 02:21
Total Bilirubin 0.4 mg/dl (0.2-1.3) 12/19/24 06:58
AST 12 U/L (14-36) L 12/19/24 06:58
ALT 14 U/L (0-35) 12/19/24 06:58
Alkaline Phosphatase 48 U/L (38-126) 12/19/24 06:58
Vital Signs and I&O:
Vital Signs
Temp Pulse Resp BP Pulse Ox
98.4 F 80 17 118/62 100
12/23/24 07:00 12/23/24 07:00 12/23/24 07:00 12/23/24 07:00 12/23/24 07:00
I&O
12/22/24 12/23/24 12/24/24
06:59 06:59 06:59
Intake Total 1800 / 1800
Balance 1800 / 1800
Physical Exam
Physical Exam
GI: Soft, Non Distended and Non Tender
--- NOTE | 2024-12-23 11:36 | W.PN.HOSP.TC ---
Today's Communication/Plan
-
IV steroids. Eliquis
Assessment / Plan
Assessment / Plan
Physical exam:
General: Acutely ill and No Apparent Distress
HEENT: Normocephalic, Atraumatic and Moist Mucous Membranes
Respiratory: Clear to Auscultation; Negative Wheezes, Rales or Rhonchi
Cardiac: Regular Rhythm and S1/S2
GI: Soft, non tender and Nondistended, hyperactive bowel sounds
Musculoskeletal: No Clubbing, No Cyanosis and No Edema
Neuro: Awake, Alert and Oriented, no neurological deficits
Psych: Calm
EGD:
- LA Grade A esophagitis.
- Gastritis. Biopsied.
- Normal examined duodenum. Biopsied.
Colonoscopy:
- The examined portion of the ileum was normal.
- Findings are consistent with Crohn's disease.
Inflammation was found in the sigmoid colon, in the
descending colon, in the transverse colon, in the
ascending colon and at the cecum. This was
moderate-severe in severity. Biopsied.
The rectum and the distal sigmoid colon were spared
- Diverticulosis in the sigmoid colon.
A/P:
Colitis, likely Crohn's disease:
Status post EGD and colonoscopy yesterday
Started on IV Solu-Medrol 20 mg IV every 8 hours and GI recommends to continue for now. Await path.
Continue oral vancomycin (C. difficile antigen positive and toxin negative)
Advance to low residue diet today per GI
PE:
Switch heparin drip to Eliquis today-discussed with pulmonary today.
Status post Doppler and echo and unremarkable
Hypertension:
Remains normotensive off medications so reevaluate
Anemia:
Continue to monitor closely
DVT prophylaxis:
Eliquis
CODE STATUS:
Full code
Anticipated Discharge: 24 - 48 hours
Subjective/Interval History
-
Date of Service: December 23, 2024
Patient feels better overall. Less diarrhea and more or less formed stools today. No hematochezia. No shortness of breath or chest pain.
Objective Data
-
Labs:
Laboratory Results
12/23/24 12/23/24 12/23/24
02:13 02:21 09:00
WBC
Hgb Cancelled
Hct Cancelled
Plt Count
APTT 115.6 H Pending
Sodium
Potassium
Chloride
Carbon Dioxide
BUN
Creatinine
Glucose
Calcium
12/23/24
09:37
WBC 5.9
Hgb 9.2 L
Hct 28.9 L
Plt Count 253
APTT
Sodium 135
Potassium 4.6 D
Chloride 105
Carbon Dioxide 29
BUN 8
Creatinine 0.6
Glucose 132 H
Calcium 9.0
Vital Signs:
Vital Signs
Temp Pulse Resp BP Pulse Ox
98.4 F 80 17 118/62 100
12/23/24 07:00 12/23/24 07:00 12/23/24 07:00 12/23/24 07:00 12/23/24 07:00
I&O
12/22/24 12/23/24 12/24/24
06:59 06:59 06:59
Intake Total 1800 / 1800
Balance 1800 / 1800
[2024-12-23 15:00] VITALS: BP 122/65
[2024-12-23 23:00] VITALS: BP 115/62
[2024-12-24] MEDS: FIRVANQ 125 MG PO ×5 (00:23→23:17)
[2024-12-24] MEDS: SOLU-MEDROL PF 20 MG IV ×3 (02:29→18:43)
[2024-12-24 07:57] VITALS: BP 116/68
[2024-12-24 08:06] LABS: Hematocrit 28.2 % (37.0-47.0); Hemoglobin 9.2 g/dL (12.0-16.0); Mean Corp Hgb Conc. 32.6 g/dL (33.0-37.0); Mean Corpuscular Hgb 30.1 pg (27.0-31.0); Mean Corpuscular Volume 92.2 fL (81.0-99.0); Platelet Count 250 10^3/uL (130-400); Red Blood Cell Count 3.06 10^6/uL (4.20-5.40); White Blood Cell Count 9.9 10^3/uL (4.8-10.8)
[2024-12-24] MEDS: VISBIOME 1 CAP PO ×2 (08:29→20:09)
[2024-12-24] MEDS: BENTYL 20 MG PO ×3 (08:30→21:26)
[2024-12-24] MEDS: ELIQUIS 10 MG PO ×2 (08:30→20:08)
[2024-12-24] MEDS: NSS (PRESERVATIVE FREE) 10 ML IV ×2 (08:31→20:09)
[2024-12-24] MEDS: PROTONIX IV 40 MG IV ×2 (08:31→20:08)
[2024-12-24] MEDS: FEOSOL 325 MG PO (08:34)
[2024-12-24 09:22] LABS: Blood Urea Nitrogen 16 mg/dl (7-17); Calcium 8.6 mg/dl (8.4-10.2); Carbon Dioxide 29 mmol/L (22-30); Chloride 104 mmol/L (98-107); Estimated Creatinine Clearance 76 ml/min; Glucose 123 mg/dl (70-99); Potassium 4.3 mmol/L (3.5-5.1); Sodium 133 mmol/L (135-145); eGFR > 60.00
--- NOTE | 2024-12-24 11:39 | W.PN.GI.CBS2 ---
Today's Communication / Plan
-
Continue IV steroid for now
Assessment / Plan
-
64 yo F who initially started having symptoms initially early November after having a meatball hoagie with nausea and vomiting. She underwent a CT in the ER at that point and was discharged. Then she developed bloody diarrhea up to 27 bowel movements a
day and was hypotensive with blood pressure of 70/48 which led to her going back to the emergency room and ultimately being admitted from December 06 to December 10. Per patient, she underwent 2 CT scans, no stool samples were done, colonoscopy. Tara have
reached out to their office and per their oral read of report to Tara ' sigmoid diverticulosis encountered. Active bleeding in the transverse colon. Colonoscopy aborted in transverse secondary to colitis. Random biopsy taken in transverse colon and
ulceration in sigmoid colon that was 2 cm. Sparing in rectum and distal sigmoid colon. Path: Transverse colon: acute granulation tissue with fibropurulent exudate consistent with ulcer. Sigmoid ulcer: acute granulation tissue with fibropurulent
exudate consistent with ulcer. Negative for microscopic colitis, negative for dysplasia or malignancy.' She was discharged and then followed up with GI outpatient and was ultimately started on steroids. They started her on 60 mg a day and she
tapered every 3 days and she is currently on 15 mg. Her stools did decrease in terms of the frequency now down to 8 bowel movements a day. She has not seen blood in her stool since December 02. She noted her stools were more watery since she decreased
to 15 mg but unclear if it was due to that or her diet. She has some pain before a bowel movement, some urgency, incontinence, nocturnal bowel movements. She has lost 15 pounds. Unclear family history her mom has colitis but not on any chronic
medications and her brother has GI issues unclear what those are. No known autoimmune conditions.
Patient was sent in by her outpatient primary care doctor as she underwent a CT scan which showed a pulmonary embolus. She was referred back to the emergency room. CT also showed colitis in the descending and TC c/w ischemic colitis, IBD, vs
infectious as well as large amount of stool in right colon. Other findings: thickening of stomach, fatty liver, mild wall thickening of jejunum.
Pulmonology has seen her and she is currently on a heparin drip. Likely VTE was multifactorial on d/w pulm due to hospitalization, colitis, car ride.
unsedated flex sig 12/19 - due to patient discomfort was limited only to sigmoid. Sigmoid looked normal .Bx path also normal.
--Colitis --Differential: ischemia (usually involves sigmoid, although did at OSH), IBD (Crohn's), infectious (seems to be a longer than expected time course).
-- Acute PE - on heparin
EGD 12/22
Impression: - LA Grade A esophagitis.
- Gastritis. Biopsied.
- Normal examined duodenum. Biopsied.
colonoscopy 12/22
Impression: - The examined portion of the ileum was normal.
- Findings are consistent with Crohn's disease.
Inflammation was found in the sigmoid colon, in the
descending colon, in the transverse colon, in the
ascending colon and at the cecum. This was
moderate-severe in severity. Biopsied.
The rectum and the distal sigmoid colon were spared
- Diverticulosis in the sigmoid colon.
Stool calprotectin over 3000
plan
Based on colonoscopy findings/elevated calprotectin -consistent with Crohn's disease.
Started on IV Solu-Medrol after colonoscopy 12/22 . Clinically doing well. Tolerating liquid diet. stools frequency around 8 / day . consistency getting formed now. occasional blood tinge
Follow-up colonoscopy path results
Tolerating low residual lactose-free/low fat diet
Stool cx negative . C diff Ag pos, toxin neg started on vanco - no improvement. Will recommend completing it
Management of PE as per medical team/pulmonary
Hepatitis B serologies/TB QuantiFERON ordered for outpatient biologic treatment initiation
CT showing jejunal thickening - outpatient MRE
Outpatient eval for fatty liver
Follow-up with Dr. Awad on discharge
Total Time Spent with Patient (in minutes): 35
Subjective
Subjective
Date of Service: December 24, 2024
Patient continues to have multiple bowel movements ( upto 8 BM ) . Stools are getting formed. Occasional blood tinge. Tolerating diet
Objective
Data Reviewed
Laboratory Data:
Laboratory Results
12/24/24 07:24
12/24/24 07:24
Laboratory Results
PT 12.8 Sec (11.4-14.6) 12/18/24 10:36
INR 0.93 12/18/24 10:36
APTT Cancelled 12/23/24 09:00
Total Bilirubin 0.4 mg/dl (0.2-1.3) 12/19/24 06:58
AST 12 U/L (14-36) L 12/19/24 06:58
ALT 14 U/L (0-35) 12/19/24 06:58
Alkaline Phosphatase 48 U/L (38-126) 12/19/24 06:58
Vital Signs and I&O:
Vital Signs
Temp Pulse Resp BP Pulse Ox
97.9 F 74 16 116/68 98
12/24/24 07:57 12/24/24 07:57 12/24/24 07:57 12/24/24 07:57 12/24/24 07:57
I&O
12/23/24 12/24/24 12/25/24
06:59 06:59 06:59
Intake Total 1800 / 1800 1740 / 1740
Balance 1800 / 1800 1740 / 1740
Physical Exam
Physical Exam
GI: Soft, Non Distended and Non Tender
--- NOTE | 2024-12-24 12:27 | W.PN.HOSP.TC ---
Today's Communication/Plan
-
Continue with IV steroids
Assessment / Plan
Assessment / Plan
EGD:
- LA Grade A esophagitis.
- Gastritis. Biopsied.
- Normal examined duodenum. Biopsied.
Colonoscopy:
- The examined portion of the ileum was normal.
- Findings are consistent with Crohn's disease.
Inflammation was found in the sigmoid colon, in the
descending colon, in the transverse colon, in the
ascending colon and at the cecum. This was
moderate-severe in severity. Biopsied.
The rectum and the distal sigmoid colon were spared
- Diverticulosis in the sigmoid colon.
A/P:
Acute colitis, likely Crohn's disease:
Status post EGD and colonoscopy.
Started on IV Solu-Medrol 20 mg IV every 8 hours and GI recommends to continue for now. Await path.
Continue oral vancomycin (C. difficile antigen positive and toxin negative)
Advance to low residue diet which she is tolerating
PE:
Switched from heparin drip to Eliquis 12/23.
Status post Doppler and echo and unremarkable
Follow outpatient with pulmonary.
Hypertension:
Remains normotensive off medications so reevaluate
Anemia:
Continue to monitor closely
DVT prophylaxis:
Eliquis
CODE STATUS:
Full code
Anticipated Discharge: Within 24 hours
Subjective/Interval History
-
Date of Service: December 24, 2024
She bowel movement last night with blood in it but the last 3 bowel movements are okay without blood. She gets crampiness with a bowel movement but otherwise no abdominal pain. No nausea vomiting. Tolerating diet.
No fever or chills.
Denies any chest pain or shortness of breath.
Objective Data
-
Labs:
Laboratory Results
12/24/24
07:24
WBC 9.9
Hgb 9.2 L
Hct 28.2 L
Plt Count 250
Sodium 133 L
Potassium 4.3
Chloride 104
Carbon Dioxide 29
BUN 16
Creatinine 0.6
Glucose 123 H
Calcium 8.6
Vital Signs:
Vital Signs
Temp Pulse Resp BP Pulse Ox
97.9 F 74 16 116/68 98
12/24/24 07:57 12/24/24 07:57 12/24/24 07:57 12/24/24 07:57 12/24/24 07:57
I&O
12/23/24 12/24/24 12/25/24
06:59 06:59 06:59
Intake Total 1800 / 1800 1740 / 1740
Balance 1800 / 1800 1740 / 1740
Physical Exam
-
General: Comfortable
Respiratory: Clear to Auscultation and Non Labored Respirations; Negative Accessory Resp Muscle Use
Cardiac: Regular Rhythm and S1/S2
GI: Soft and Nontender
Neuro: AO x 3
Data Reviewed
-
Labs: Labs Reviewed by me
[2024-12-24 15:41] VITALS: BP 103/56
--- NOTE | 2024-12-24 16:07 | CM ---
CM reviewed chart, patient seen bedside, reports no needs at this time, plan remains home when stable. Continue IV steroids. CM will continue to follow for all discharge planning needs.
Plan; home when stable
[2024-12-24 23:12] VITALS: BP 124/66
[2024-12-25 01:36] LABS: Quantiferon Mitogen minus NIL 9.83 IU/mL; Quantiferon NIL 0.07 IU/mL; Quantiferon TB Gold Plus Negative (Negative)
[2024-12-25] MEDS: SOLU-MEDROL PF 20 MG IV ×3 (02:14→18:50)
[2024-12-25] MEDS: FIRVANQ 125 MG PO ×3 (06:10→18:49)
[2024-12-25 07:00] VITALS: BP 119/64
[2024-12-25] MEDS: BENTYL 20 MG PO ×3 (08:28→21:09)
[2024-12-25] MEDS: VISBIOME 1 CAP PO ×2 (08:28→20:22)
[2024-12-25] MEDS: ELIQUIS 10 MG PO ×2 (08:28→20:21)
[2024-12-25] MEDS: NSS (PRESERVATIVE FREE) 10 ML IV ×2 (08:29→20:22)
[2024-12-25] MEDS: PROTONIX IV 40 MG IV ×2 (08:29→20:21)
--- NOTE | 2024-12-25 08:43 | W.PN.HOSP.TC ---
Today's Communication/Plan
-
CW IV steroids
CW Eliquis
Assessment / Plan
Assessment / Plan
EGD:
- LA Grade A esophagitis.
- Gastritis. Biopsied.
- Normal examined duodenum. Biopsied.
Colonoscopy:
- The examined portion of the ileum was normal.
- Findings are consistent with Crohn's disease.
Inflammation was found in the sigmoid colon, in the
descending colon, in the transverse colon, in the
ascending colon and at the cecum. This was
moderate-severe in severity. Biopsied.
The rectum and the distal sigmoid colon were spared
- Diverticulosis in the sigmoid colon.
A/P:
Acute colitis, likely Crohn's disease:
Status post EGD and colonoscopy.
Started on IV Solu-Medrol 20 mg IV every 8 hours .
Improving with no blood in the stool but still with diarrhea. Tolerating diet. Continue with IV steroids per GI. Await path.
Continue oral vancomycin (C. difficile antigen positive and toxin negative)
Advance to low residue diet which she is tolerating
PE:
Switched from heparin drip to Eliquis 12/23.
Status post Doppler and echo and unremarkable
Follow outpatient with pulmonary.
Hypertension:
Remains normotensive off medications so reevaluate
Anemia:
Continue to monitor closely
DVT prophylaxis:
Eliquis
CODE STATUS:
Full code
Home when okay from GI standpoint
Anticipated Discharge: Within 24 hours
Subjective/Interval History
-
Date of Service: December 25, 2024
No further blood in the stool but still with frequent black stools. In the last 24 hours she had at least 8 loose stools.
No nausea or vomiting. No abdominal pain. No fever or chills. Not dizzy.
Objective Data
-
Vital Signs:
Vital Signs
Temp Pulse Resp BP Pulse Ox
97.9 F 76 16 119/64 98
12/25/24 07:00 12/25/24 07:00 12/25/24 07:00 12/25/24 07:00 12/25/24 07:00
I&O
12/24/24 12/25/24 12/26/24
06:59 06:59 06:59
Intake Total 1740 / 1740 1320 / 1320
Balance 1740 / 1740 1320 / 1320
Physical Exam
-
General: No Apparent Distress
Respiratory: Non Labored Respirations; Negative Accessory Resp Muscle Use
GI: Soft and Nontender
Neuro: AO x 3
--- NOTE | 2024-12-25 11:30 | W.PN.GI.CBS2 ---
Today's Communication / Plan
-
Low residue diet
D/c planning anticipate tomorrow
C/w IV solumedrol and monitor stool output
Assessment / Plan
-
Magaly is a 64yo W with h/o HTN who is admitted with bloody diarrhea fecal calprotectin >3000 with colonoscopy 12/22/2024 suggestive of new diagnosis of Crohn's disease. She also had recent PE on eliquis after recent travel home from [place].
Impression
- Bloody diarrhea likely from newly diagnosed Crohn's
- Acute PE post travel
- Cdiff antigen + toxin negative
- Iron deficiency anemia
- Fatty liver
- GERD with esophagitis
unsedated flex sig 12/19 - due to patient discomfort was limited only to sigmoid. Sigmoid looked normal .Bx path also normal.
EGD 12/22 LA Grade A esophagitis. Gastritis
Colonoscopy 12/22 TI normal. Findings are consistent with Crohn's disease. Inflammation was found in the sigmoid colon, in the descending colon, in the transverse colon, in the ascending colon and at the cecum. This was moderate-severe in severity.
Biopsied. The rectum and the distal sigmoid colon were spared. Sigmoid tics
Recommendations
- C/w IV solumedrol
- Anticipate transitioning to oral prednisone tomorrow. Would benefit from slow taper Prednisone 10mg (6tabs daily x7 days, then 5 tabs daily x7 days, then 4 tabs daily x7 days to 10mg daily
- TB negative, Hep B surface antigen pending.
- Monitor stool output
- Adv to low residue diet
- To complete 10 days of oral vancomycin
- C/w eliquis for PE. She is ambulating around room
- Will need close FU with Dr Ritesh BERG to discuss biologic initiation. Consider MRE vs VCE for small bowel evaluation and also fibroscan for fatty liver.
Above d/w hospitalist. Will follow with you
Subjective
Subjective
Date of Service: December 25, 2024
She denies abd pain. Tolerating full liquid diet. Yesterday 8 BM today thus far only 2. No longer bloody. She is ambulating around room
Objective
Data Reviewed
Laboratory Data:
Laboratory Results
12/24/24 07:24
12/24/24 07:24
Laboratory Results
PT 12.8 Sec (11.4-14.6) 12/18/24 10:36
INR 0.93 12/18/24 10:36
APTT Cancelled 12/23/24 09:00
Total Bilirubin 0.4 mg/dl (0.2-1.3) 12/19/24 06:58
AST 12 U/L (14-36) L 12/19/24 06:58
ALT 14 U/L (0-35) 12/19/24 06:58
Alkaline Phosphatase 48 U/L (38-126) 12/19/24 06:58
Vital Signs and I&O:
Vital Signs
Temp Pulse Resp BP Pulse Ox
97.9 F 76 16 119/64 98
12/25/24 07:00 12/25/24 07:00 12/25/24 07:00 12/25/24 07:00 12/25/24 07:00
I&O
12/24/24 12/25/24 12/26/24
06:59 06:59 06:59
Intake Total 1740 / 1740 1320 / 1320
Balance 1740 / 1740 1320 / 1320
Physical Exam
Physical Exam
GEN: No acute distress, conversant, pleasant appears younger than stated age
HEENT: anicteric, extraocular movements intact, clear oropharynx without exudates
GI: soft, non-distended, not tender to palpation, normal active bowel sounds, no hepatosplenomegaly
EXT: warm, well perfused, trace edema bilaterally
NEURO: AAOx3, non-focal
[2024-12-25 15:15] VITALS: BP 105/70
[2024-12-25 17:19] LABS: Hepatitis B Surface Antigen Negative (Negative)
[2024-12-25 17:36] LABS: Hepatitis B Core Ab, Total Negative (Negative)
[2024-12-25 21:09] LABS: Hepatitis B Surface Antibody Negative
[2024-12-25 22:02] VITALS: BP 110/67
[2024-12-26] MEDS: FIRVANQ 125 MG PO ×3 (01:11→13:13)
[2024-12-26] MEDS: SOLU-MEDROL PF 20 MG IV ×2 (01:11→09:54)
[2024-12-26 07:05] VITALS: BP 113/65
[2024-12-26 08:15] LABS: Hematocrit 30.5 % (37.0-47.0); Hemoglobin 9.8 g/dL (12.0-16.0); Mean Corp Hgb Conc. 32.1 g/dL (33.0-37.0); Mean Corpuscular Hgb 29.6 pg (27.0-31.0); Mean Corpuscular Volume 92.1 fL (81.0-99.0); Mean Platelet Volume 9.5 fL (7.4-10.4); Platelet Count 254 10^3/uL (130-400); Red Blood Cell Count 3.31 10^6/uL (4.20-5.40); Red Cell Dist. Width 16.7 % (11.5-14.5); White Blood Cell Count 8.5 10^3/uL (4.8-10.8)
[2024-12-26 09:21] LABS: Blood Urea Nitrogen 22 mg/dl (7-17); Calcium 8.7 mg/dl (8.4-10.2); Carbon Dioxide 29 mmol/L (22-30); Chloride 105 mmol/L (98-107); Estimated Creatinine Clearance 76 ml/min; Glucose 109 mg/dl (70-99); Potassium 4.2 mmol/L (3.5-5.1); Sodium 134 mmol/L (135-145); eGFR > 60.00
[2024-12-26] MEDS: NSS (PRESERVATIVE FREE) 10 ML IV (09:48)
[2024-12-26] MEDS: ELIQUIS 10 MG PO (09:48)
[2024-12-26] MEDS: PROTONIX IV 40 MG IV (09:48)
[2024-12-26] MEDS: BENTYL 20 MG PO (09:48)
[2024-12-26] MEDS: VISBIOME 1 CAP PO (09:49)
[2024-12-26] MEDS: FEOSOL 325 MG PO (09:52)
--- NOTE | 2024-12-26 11:41 | W.PN.GI.CBS2 ---
Today's Communication / Plan
-
Oral prednisone taper as above
To complete 10days of oral vancomycin
Dr Rendon will call with final path report when available
My office will call to arrange FU with Dr Awad in 2-4
GI will sign off please call for ?
Assessment / Plan
-
Magaly is a 64yo W with h/o HTN who is admitted with bloody diarrhea fecal calprotectin >3000 with colonoscopy 12/22/2024 suggestive of new diagnosis of Crohn's disease. She also had recent PE on eliquis after recent travel home from [place].
Impression
- Bloody diarrhea likely from newly diagnosed Crohn's
- Acute PE post travel
- Cdiff antigen + toxin negative
- Iron deficiency anemia
- Fatty liver
- GERD with esophagitis
unsedated flex sig 12/19 - due to patient discomfort was limited only to sigmoid. Sigmoid looked normal .Bx path also normal.
EGD 12/22 LA Grade A esophagitis. Gastritis
Colonoscopy 12/22 TI normal. Findings are consistent with Crohn's disease. Inflammation was found in the sigmoid colon, in the descending colon, in the transverse colon, in the ascending colon and at the cecum. This was moderate-severe in severity.
Biopsied. The rectum and the distal sigmoid colon were spared. Sigmoid tics
Recommendations
- Transition to oral prednisone today
- Please d/c on slow taper Prednisone 10mg (6tabs daily x7 days, then 5 tabs daily x7 days, then 4 tabs daily x7 days to 10mg daily stop)
- TB negative, Hep B surface antigen pending.
- Tolerating low residue diet.
- To complete 10 days of oral vancomycin
- C/w eliquis for PE. She is ambulating around room
- Will need close FU with Dr Awad OP to discuss biologic initiation. Consider MRE vs VCE for small bowel evaluation and also fibroscan for fatty liver. Message sent to schedulers and they will reach out to patient
OK for hosp d/c today from GI perspective. Will need rx for oral vancomycin and steroids as above.
GI will sign off please call for ?
Subjective
Subjective
Date of Service: December 26, 2024
No abd pain. Tolerate 100% of meals. Reports down to 6 loose stools nonbloody and smaller volume. She is ready to go home today.
Objective
Data Reviewed
Laboratory Data:
Laboratory Results
12/26/24 07:50
12/26/24 07:50
Laboratory Results
PT 12.8 Sec (11.4-14.6) 12/18/24 10:36
INR 0.93 12/18/24 10:36
APTT Cancelled 12/23/24 09:00
Total Bilirubin 0.4 mg/dl (0.2-1.3) 12/19/24 06:58
AST 12 U/L (14-36) L 12/19/24 06:58
ALT 14 U/L (0-35) 12/19/24 06:58
Alkaline Phosphatase 48 U/L (38-126) 12/19/24 06:58
Vital Signs and I&O:
Vital Signs
Temp Pulse Resp BP Pulse Ox
97.8 F 69 16 113/65 99
12/26/24 07:05 12/26/24 07:05 12/26/24 07:05 12/26/24 07:05 12/26/24 07:05
I&O
12/25/24 12/26/24 12/27/24
06:59 06:59 06:59
Intake Total 1320 / 1320 1240 / 1240
Balance 1320 / 1320 1240 / 1240
Physical Exam
Physical Exam
GEN: No acute distress, conversant, pleasant
HEENT: anicteric, extraocular movements intact, clear oropharynx without exudates
GI: soft, non-distended, not tender to palpation, normal active bowel sounds, no hepatosplenomegaly
EXT: warm, well perfused, no edema bilaterally
NEURO: AAOx3, non-focal
--- NOTE | 2024-12-26 11:55 | W.PN.HOSP.TC ---
Today's Communication/Plan
-
DC if ok from GI standpoint
Assessment / Plan
Assessment / Plan
EGD:
- LA Grade A esophagitis.
- Gastritis. Biopsied.
- Normal examined duodenum. Biopsied.
Colonoscopy:
- The examined portion of the ileum was normal.
- Findings are consistent with Crohn's disease.
Inflammation was found in the sigmoid colon, in the
descending colon, in the transverse colon, in the
ascending colon and at the cecum. This was
moderate-severe in severity. Biopsied.
The rectum and the distal sigmoid colon were spared
- Diverticulosis in the sigmoid colon.
A/P:
Acute colitis, likely Crohn's disease:
Status post EGD and colonoscopy.
Started on IV Solu-Medrol 20 mg IV every 8 hours .
Improving with no blood in the stool but still with diarrhea. Tolerating diet. Continue with IV steroids per GI. Await path.
Continue oral vancomycin (C. difficile antigen positive and toxin negative)
Advance to low residue diet which she is tolerating
PE:
Switched from heparin drip to Eliquis 12/23.
Status post Doppler and echo and unremarkable
Follow outpatient with pulmonary.
Hypertension:
Remains normotensive off medications so reevaluate
Anemia:
Continue to monitor closely
DVT prophylaxis:
Eliquis
CODE STATUS:
Full code
Home when okay from GI standpoint
Anticipated Discharge: Today
Subjective/Interval History
-
Date of Service: December 26, 2024
No further bloody diarrhea
3 loose stools today so far but no N/V or abdo pain
No fever
No SOB or CP
Objective Data
-
Labs:
Laboratory Results
12/26/24
07:50
WBC 8.5
Hgb 9.8 L
Hct 30.5 L
Plt Count 254
Sodium 134 L
Potassium 4.2
Chloride 105
Carbon Dioxide 29
BUN 22 H
Creatinine 0.6
Glucose 109 H
Calcium 8.7
Vital Signs:
Vital Signs
Temp Pulse Resp BP Pulse Ox
97.8 F 69 16 113/65 99
12/26/24 07:05 12/26/24 07:05 12/26/24 07:05 12/26/24 07:05 12/26/24 07:05
I&O
12/25/24 12/26/24 12/27/24
06:59 06:59 06:59
Intake Total 1320 / 1320 1240 / 1240
Balance 1320 / 1320 1240 / 1240
Physical Exam
-
General: No Apparent Distress
HEENT: Moist Mucous Membranes
Respiratory: Non Labored Respirations; Negative Accessory Resp Muscle Use
Cardiac: Regular Rhythm and S1/S2; Negative Tachycardic
GI: Soft, Nontender, Nondistended and Normal Bowel Sounds
Neuro: AO x 3
Data Reviewed
-
Labs: Labs Reviewed by me
--- NOTE | 2024-12-26 12:16 | CM ---
CM reviewed chart, patient seen bedside. Patient reports she will be discharged today, denies needs upon discharge. Patient confirms transportation home. CM will continue to follow for all discharge planning needs.
Plan; home no needs
--- NOTE | 2024-12-26 14:57 | W.DCSUMMARY ---
Discharge Summary
Discharge Data
Date of Admission: 12/18/24
Date of Discharge: 12/26/24
-
Pending Results: Yes
Additional Pending Results:
Colonic biopsies pathology
Hospital Course
Primary diagnosis:
Acute colitis likely Crohn's disease
Bilateral pulmonary embolism
Secondary diagnosis:
Hypertension
Anemia
Hospital course:
Patient had recent hospitalization in [place] in November for bloody diarrhea and was diagnosed with colitis. Had a colonoscopy apparently in [facility] which showed severe colonic inflammation and sigmoid ulcer. She was initiated on prednisone.
She had an outpatient CAT scan of abdomen pelvis prior to referral to hospital which showed bilateral lower lobe pulmonary embolism and so was referred to the hospital by PCP. She had no symptoms of shortness of breath or chest pain or dizziness.
After recent hospitalization in [place] she had a long drive back from [place] sitting in a car for long time. She did have swelling in the left leg which resolved. An ultrasound the leg showed no evidence of DVT. She had a dedicated CT chest PE
study which showed small volume bilateral lower lobe pulmonary embolism and no right ventricular strain. Was initiated on IV heparin and transition to Eliquis. Was seen by pulmonary. It was felt PE may be provoked with recent hospitalization,
long car genic, active inflammation with colitis. She tolerated Eliquis initiation well and she will follow-up with pulmonary as an outpatient.
She persisted to have diarrhea which was improving on prednisone treatment initiated recently. She had hematochezia with initiation of IV heparin for PE. CT of the abdomen pelvis showed moderate acute recurrent colitis in the transverse colon,
descending colon. GI was not sure whether it was colitis related bloody diarrhea or other forms. She went on to have EGD and colonoscopy on the colonoscopy showed active inflammation in the sigmoid colon, descending colon, transverse colon,
ascending colon and the cecum suspicious for Crohn's disease. Biopsies were taken which were pending at the time of discharge. She was put on IV steroids with resolution of bloody diarrhea but she was still having loose stools. She was tolerating
diet. When she had no further bloody diarrhea she was transition into oral prednisone high-dose at 60 mg to taper by 10 mg every week and follow-up with GI as an outpatient.
Consultants on board:
Pulmonary-Leel Franks
GI-Kevan Vázquez
Discharge Plan
-
Patient Disposition: Home (Routine Discharge)
Discharge Diagnosis/Procedures: Bloody diarrhea likely from newly diagnosed Crohn's disease pathology pending; BL PE
Diet: Low Residue
Additional Diets: Low lactose
Referrals:
Hany Saravia MD [Active, Pulmonary Medicine] - in one to two months
Kevan Awad MD [Active, Gastroenterology]
Referral Note: 2-4 wks for new diagnosis of crohn's disease, need biologic
UNKNOWN - PT DOES,NOT KNOW [Family Provider] - in less than 1 week
Prescriptions:
New
Eliquis 5 mg Tablet
5 mg PO BID Qty: 68 0RF
Rx Instructions:
10mg twice a day starting tonight till 12/29 and then 5mg twice daily
prednisone 10 mg tablet
10 mg PO DIRECTED Qty: 132 0RF
Rx Instructions:
start 60mg daily for a week and then taper down by 10mg weekly
vancomycin 125 mg capsule
125 mg PO QID Qty: 8 0RF
Rx Instructions:
for 2 more days
Continued
lisinopril 10 MG tablet
10 mg PO DAILYPRN PRN (Reason: high blood pressure)
escitalopram oxalate 5 MG tablet
5 mg PO DAILYPRN PRN (Reason: anxiety)
loperamide 2 mg Tablet
2 mg PO BIDPRN PRN (Reason: diarrhea)
Visbiome 112.5 billion cell Capsule
1 cap PO BID
ferrous sulfate 325 mg (65 mg iron) Tablet
325 mg PO MOWEFR Qty: 30 0RF
Changed
dicyclomine 10 mg Capsule
20 mg PO TID PRN (Reason: crampy abdominal pain) Qty: 30 0RF
Discontinued
prednisone 5 mg Tablet
5 mg PO DIRECTED
Rx Instructions:
starting 12/04/24 take 15mg daily for 7 days then 10mg daily for 7 days then 5mg daily thereafter
Discharge Orders:
Discharge Patient (As Directed); Ordered 12/26/24
Ordered By: Jack Hood
Discharge Date and Time
Print Language: DUTCH
[2024-12-26 15:07] VITALS: BP 115/78
== END 2024-12-26 15:24 | disposition home or self-care (01) | DRG 385 ==
LOC: 4 WEST ACU 14:04
PROVIDERS: Hospitalist; Internal Medicine Gastroenterology; Nurse Practitioner; Physician Assistant; ADMITTING PHYSICIAN Hospitalist; ATTENDING PHYSICIAN Internal Medicine; CONSULT PHYSICIAN Internal Medicine; CONSULT PHYSICIAN Internal Medicine Gastroenterology; EMERGENCY PHYSICIAN Emergency Medicine
PROC: 0DBN8ZX Excision of Sigmoid Colon, Via Natural or Artificial Opening Endoscopic, Diagnostic (ICD-10-PCS; 2024-12-19)
PROC: 0DBH8ZX Excision of Cecum, Via Natural or Artificial Opening Endoscopic, Diagnostic (ICD-10-PCS; 2024-12-22)
PROC: 0DBL8ZX Excision of Transverse Colon, Via Natural or Artificial Opening Endoscopic, Diagnostic (ICD-10-PCS; 2024-12-22)
PROC: 0DB68ZX Excision of Stomach, Via Natural or Artificial Opening Endoscopic, Diagnostic (ICD-10-PCS; 2024-12-22)
PROC: 0DB98ZX Excision of Duodenum, Via Natural or Artificial Opening Endoscopic, Diagnostic (ICD-10-PCS; 2024-12-22)
PROC: 0DBM8ZX Excision of Descending Colon, Via Natural or Artificial Opening Endoscopic, Diagnostic (ICD-10-PCS; 2024-12-22)
PROC: 0DBK8ZX Excision of Ascending Colon, Via Natural or Artificial Opening Endoscopic, Diagnostic (ICD-10-PCS; 2024-12-22)
DX: K50.919 Crohn's disease, unspecified, with unspecified complications (principal); I26.99 Other pulmonary embolism without acute cor pulmonale; I10 Essential (primary) hypertension; D64.9 Anemia, unspecified; K20.90 Esophagitis, unspecified without bleeding; F41.9 Anxiety disorder, unspecified; J32.9 Chronic sinusitis, unspecified; Z87.891 Personal history of nicotine dependence; Z88.1 Allergy status to other antibiotic agents; E87.6 Hypokalemia; K76.0 Fatty (change of) liver, not elsewhere classified; K29.00 Acute gastritis without bleeding; Z86.0100 Personal history of colon polyps, unspecified; K57.30 Diverticulosis of large intestine without perforation or abscess without bleeding; Z80.0 Family history of malignant neoplasm of digestive organs; Z79.899 Other long term (current) drug therapy; E11.9 Type 2 diabetes mellitus without complications; E78.00 Pure hypercholesterolemia, unspecified; F32.A Depression, unspecified; J45.909 Unspecified asthma, uncomplicated; K64.0 First degree hemorrhoids
CPT/HCPCS: 88305; 71275; 80048; 80053; 83605; 83993; 85025; 85027; 85610; 85652; 85730; 86140; 86480; 86704; 86706; 86850; 86900; 86901; 87045; 87046; 87077; 87324; 87328; 87329; 87340; 87427; 87449; 88342; 89055; 93005; 93306; 93970; 96365; 99285; Q9967

== ENCOUNTER → 2025-03-19 10:04 | Outpatient (REF) | payer OTHER, SELFPAY | LOC: MRI 3T 10:04 | PROVIDERS: ATTENDING PHYSICIAN Internal Medicine Gastroenterology; PRIMARYCARE PHYSICIAN Student in an Organized Health Care Education/Training Program | DX: K50.111 Crohn's disease of large intestine with rectal bleeding (principal) | CPT/HCPCS: 72197; 74183; A9585 ==

== ENCOUNTER → 2025-04-12 13:22 | Outpatient (REF) | payer OTHER, SELFPAY | LOC: RAD 13:22 | PROVIDERS: ATTENDING PHYSICIAN Internal Medicine; FAMILY PHYSICIAN Student in an Organized Health Care Education/Training Program | DX: I26.99 Other pulmonary embolism without acute cor pulmonale (principal) | CPT/HCPCS: 71275; Q9967 ==

== ENCOUNTER → 2025-07-02 13:16 | Outpatient (REF) | payer OTHER, SELFPAY | LOC: WDC 13:16 | PROVIDERS: ATTENDING PHYSICIAN Student in an Organized Health Care Education/Training Program | DX: Z12.31 Encounter for screening mammogram for malignant neoplasm of breast (principal) | CPT/HCPCS: 77063; 77067 ==